=== PATIENT | male | born 1930 | race Caucasian/White ===

== ENCOUNTER 2017-12-29 08:33 | Observation (INO) | payer MEDICARE ==
[~2017-12-29] VITALS: Ht 182.9 cm; Wt 89.8 kg
[~2017-12-29 08:33] MED LIST: BENZONATATE PO; CHERATUSSIN AC118 ML PO; DIAZEPAM5 MG PO; DIGITEK125 MC1; HUMALOG100 UNIT/1 SQ; LEVAQUIN500 MG PO; LEVEMIR100 UNIT/1 SQ; LOSARTAN POTAS100 MG PO; MEDROL4 MG/DOSE-; MONTELUKAST SOD10 MG PO; NIFEDICAL XL30 MG PO; OMEPRAZOLE20 M1 PO; PROVENTIL HFA6.7 GM IH; SPIRIVA18 MCG INH; TEMAZEPAM15 MG PO; Z LEVOTHROID PO; Z.0.AMLODIPINE BESY1 PO; Z.0.COUMADIN4 MG PO; Z.0.CRESTOR20 MG PO; Z.0.DIOVAN160 MG PO; Z.0.GABAPENTIN300 MG PO; Z.0.GLYBURIDE5 MG PO; Z.0.LEVOFLOXACIN500 PO; Z.0.LOPRESSOR50 MG PO; Z.1.HYDROCHLOROTH12. PO
--- OUTSIDE RECORDS SUMMARY | 2017-12-29 08:35 | XMS REPORT ---
Author Author [facility] Address Unknown Phone Unavailable Care Team Providers Care Risk Control Representative Name Role Phone KAREN HANDLEY Unavailable Unavailable Problems This patient has no known problems. Allergies, Adverse Reactions, Alerts This patient has no known allergies or adverse reactions. Medications This patient has no known medications. Results Test Description Test Time Test Comments Text Results Atomic Results Result Comments CT CHEST [address] [place] [address] Patient Name: LINK HURD MR #: [id number] : 1930 Age/Sex: 87/M Req #: [id number] Adm Physician: Ordered by: KAREN HANDLEY MD Report #: [id number] Location: [facility] Room/Bed: Procedure: [id number] 0004 CT/CT CHEST W Exam Date: 08/26/17 Exam Time: 1145 REPORT STATUS: Signed EXAM: CT Chest WITH contrast INDICATION: Mass COMPARISON: 03/16/2017 CT abdomen TECHNIQUE: The Chest was scanned utilizing a multidetector helical scanner after administration of IV contrast. Coronal and sagittal reformations were obtained. IV CONTRAST: 100 mL Isovue-370 COMPLICATIONS: None RADIATION DOSE: Total DLP: 489 mGy*cm Estimated effective dose: (DLP x 0.015 x size factor) mSv CTDIvol has been reviewed. It is below the limits set by the Radiation Protocol Committee (RPC). FINDINGS: Lines and Tubes: None. Lower Neck: Unremarkable. Heart and Great Vessels: The aorta and main pulmonary artery measure 39 and 30 mm. respectively. The cardiothoracic radio measures 12/26. Right pulmonary trunk measures 29 mm and left pulmonary trunk measures 26 mm. Moderate aortic and coronary artery vascular calcifications are present. While exam is not tailored for pulmonary artery evaluation, no central pulmonary embolus is identified. Left atrium is prominent measuring 47 mm in diameter. Lymph Nodes: Scattered small subcentimeter mesenteric lymph nodes present. 16 mm right hilar lymph node present. Lungs: There is mild biapical scarring. No pneumothorax or pleural effusion is present. Mucus is present in the right lower lobe bronchus. There is partial collapse/ atelectasis in the right middle lobe. Previously described nodule in the medial aspect of the left lower lobe has decreased in size now measuring 12 x 9 mm. There is a granuloma in the right lower lobe axial image 72. 11 mm groundglass nodule right upper lobe axial image 24 present. Calcified granulomata at the right apex present. Upper abdomen: Post surgical changes left hepatic lobe partially visualized. Bones and Soft Tissues: Sternotomy wires and moderate degenerative changes spine. IMPRESSION: 1. Nodular density medial aspect left lower lobe significantly improved now measuring 12 x 9 mm. Clinical history is unknown at time of dictation. If patient has a known history of malignancy, this would represent response to therapy. If findings were presumed infectious, findings would represent improving infectious process. Correlation recommended. 2. 11 mm groundglass nodule right upper lobe. If there is no history of known malignancy, CT follow-up 6-12 months recommended with documentation of 5 year stability recommended. If there is a history of known malignancy, shorter interval follow-up would be recommended. 3. 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 4. Prominent pulmonary arteries suggesting pulmonary hypertension. 5. Dilated left atrium. 6. Prominent right hilar lymph node, nonspecific. Signed by: Dr. Brett Johnson MD on 08/26/2017 1:46 PM Dictated By: BRETT JOHNSON MD [id number] Transcribed By: BRITNEY on 08/26/17 1346 COPY TO: KAREN HANDLEY MD
[2017-12-29] MEDS ORDERED: CLONIDINE HCL 0.2 MG TAB PO ONE (09:00)
[2017-12-29] MEDS ORDERED: NITROGLYCERIN 2% OINT 1 GM PKT TOP STA (09:03)
[2017-12-29 09:49] LABS: BASOPHILS # (AUTO) 0.1 (0.0-0.1); BASOPHILS % 0.7 % (0.0-1.0); EOSINOPHILS # (AUTO) 0.3 (0.0-0.4); EOSINOPHILS % 3.6 % (0.0-6.0); HEMATOCRIT 39.6 % (38.2-49.6); HEMOGLOBIN 12.7 g/dL (14.0-18.0); LYMPHOCYTES # (AUTO) 1.4 (1.0-3.2); LYMPHOCYTES % 16.8 % (18.0-39.1); MEAN CORPUSCULAR HEMOGLOBIN 29.1 pg (28-32); MEAN CORPUSCULAR HGB CONC 32.1 g/dL (31-35); MEAN CORPUSCULAR VOLUME 90.8 fL (81-99); MONOCYTES # (AUTO) 0.9 (0.2-0.8); MONOCYTES % 10.6 % (4.4-11.3); NEUTROPHILS # (AUTO) 5.5 (2.1-6.9); NEUTROPHILS % 67.9 % (38.7-80.0); PLATELET COUNT 213 x10e3/uL (140-360); RED BLOOD COUNT 4.36 x10e6/uL (4.3-5.7); RED CELL DISTRIBUTION WIDTH 13.6 % (11.7-14.4)
[2017-12-29 10:04] LABS: INR 1.8; PROTHROMBIN TIME 19.6 seconds (11.9-14.5)
[2017-12-29 10:05] LABS: PARTIAL THROMBOPLASTIN TIME 30.6 seconds (23.8-35.5)
[2017-12-29 10:12] LABS: ALANINE AMINOTRANSFERASE 22 IU/L (0-55); ALBUMIN 3.9 g/dL (3.5-5.0); ALKALINE PHOSPHATASE 78 IU/L (40-150); ANION GAP 13.7 mmol/L (8-16); BLOOD UREA NITROGEN 13 mg/dL (7-26); BUN/CREATININE RATIO 13 (6-25); CALCIUM 9.6 mg/dL (8.4-10.2); CARBON DIOXIDE 25 mmol/L (22-29); CHLORIDE 103 mmol/L (98-107); CREATINE KINASE 108 IU/L (30-200); CREATININE, SERUM 1.02 mg/dL (0.72-1.25); EST GLOMERULAR FILTRATION RATE > 60 ML/MIN (60-); GLUCOSE 176 mg/dL (74-118); POTASSIUM 3.7 mmol/L (3.5-5.1); SODIUM 138 mmol/L (136-145)
--- NOTE | 2017-12-29 10:13 | Diagnostic Imaging Report ---
PROCEDURE: CHEST SINGLE (PORTABLE) COMPARISON: Patients [facility], DX, CHEST 2 VIEWS, 03/19/2017, 5:30. INDICATIONS: HEADACHE, SHORTNESS OF BREATH FINDINGS: LUNGS: No consolidations or edema. Right upper lobe calcified granulomas. PLEURA: No effusions or pneumothorax. HEART \T\ MEDIASTINUM: The heart is within normal size-limits. There are sternotomy wire sutures. BONES \T\ SOFT TISSUES: Multiple old rib fractures and left clavicular fracture. CONCLUSION: No acute thoracic abnormality. Ajay Grant D.O. Dictated by: Ajay Grant D.O. on 12/29/2017 at 10:12 Electronically approved by: Ajay Grant D.O. on 12/29/2017 at 10:12
[2017-12-29] MEDS ORDERED: SODIUM CHLORIDE FLUSH 10 ML SYR INJ PRN (12:30)
[2017-12-29] MEDS ORDERED: ACETAMINOPHEN 325 MG TAB PO ONE (13:15)
[2017-12-29] MEDS ORDERED: CLONIDINE HCL 0.1 MG TAB PO ONE (13:15)
[2017-12-29 16:30] VITALS: BP 113/59
[2017-12-29 16:50] VITALS: BP 113/59
[2017-12-29] MEDS ORDERED: HYDRALAZINE HCL 20 MG/ML VIAL IV PRN (19:30)
[2017-12-29] MEDS: ACETAMINOPHEN 325 MG TAB PO PRN (19:35)
[2017-12-29 20:00] VITALS: BP 19/64
[2017-12-29 22:27] VITALS: BP 19/64
[2017-12-30] VITALS (7 sets, daily range): BP systolic 102–143; BP diastolic 41–65
[2017-12-30] MEDS: DIAZEPAM 5 MG TAB PO SCH ×4 (06:45→21:17)
[2017-12-30] MEDS ORDERED: DIAZEPAM 5 MG TAB PO PRN (06:45)
--- NOTE | 2017-12-30 07:19 | History and Physical ---
PRIMARY CARE PHYSICIAN: Patient does not recall. CHIEF COMPLAINT: Increased anxiety, headache and shortness of breath. HISTORY OF PRESENT ILLNESS: An 87-year-old man with a history of hypertension, now developing severe anxiety with shortness of breath, headache, and therefore came to the hospital. Blood pressure was as high as 230/110. He was given nitroglycerin and clonidine, and placed on a nitroglycerin patch. Patient's anxiety finally resolved, and now all his symptoms have resolved. Denies any chest pain. Denies any fever or chills. PAST MEDICAL HISTORY: Anxiety disorder, atrial fibrillation, hypertension, hypothyroidism, diabetes mellitus, type 2, GERD. PAST SURGICAL HISTORY: None. ALLERGIES: PER ELECTRONIC MEDICAL RECORD. FAMILY HISTORY/SOCIAL HISTORY: Patient is . He has 3 children. Occasional alcohol. No cigarettes or illicits. MEDICATIONS: Per electronic medical record. REVIEW OF SYSTEMS: Denies any dizziness or chest pain at this time. PHYSICAL EXAMINATION VITAL SIGNS: Have been reviewed. His blood pressure is as high as 230/110. GENERAL: A tired-appearing man resting in bed. HEENT: Anicteric. Pupils respond to light. No oral lesions. CARDIOVASCULAR: Normal S1 and S2. LUNGS: He has moderate breath sounds. ABDOMEN: Soft, nontender and nondistended. EXTREMITIES: No edema or calf tenderness. NEUROLOGICAL: He is alert and oriented times 3. Moves all extremities. SKIN: Dry. PSYCHIATRIC: Flat affect. LABS: Reviewed. MEDICATIONS: Reviewed. ASSESSMENT AND PLAN: An 87-year-old man with: 1. Panic attack: His symptoms completely resolved after about an hour. Will treat him with benzodiazepine and Valium and titrate down. 2. Hypertensive emergency with headache and shortness of breath: He was given clonidine and nitroglycerin. We will remove the nitro patch now, and start him on oral medications for blood pressure control. 3. Atrial fibrillation: He does take Coumadin at home and digoxin. Will check his digoxin level and restart his Coumadin. His INR is 1.8. 4. Diabetes mellitus, type 2: Obtain hemoglobin A1c and lipid panel. 5. Hypothyroidism: Will continue Synthroid and check his TSH. 6. Gastroesophageal reflux disease: Protonix. 7. Prophylaxis: Will use proton pump inhibitor and sequential compression devices. 8. Disposition: Monitor closely. Control blood pressure. Remove nitro patch now and start him on oral medications. Continue Valium. Titrate off over the next day. Job#: [id number]
[2017-12-30 08:25] LABS: CHOL/HDL RATIO 6.9 (3.9-4.7)
[2017-12-30] MEDS ORDERED: TIOTROPIUM 18 MCG INH POWDER INH SCH (09:00)
[2017-12-30] MEDS ORDERED: PANTOPRAZOLE SOD 40 MG TABEC PO SCH (09:00)
[2017-12-30] MEDS ORDERED: MONTELUKAST SODIUM 10 MG TAB PO SCH (09:00)
[2017-12-30] MEDS ORDERED: NIFEDIPINE CR 30 MG TAB PO SCH (09:00)
[2017-12-30] MEDS ORDERED: INSULIN DETEMIR 100 UNIT/ML PEN SQ SCH ×2 (09:00→17:00)
[2017-12-30] MEDS: LEVOTHYROXINE SODIUM 125 MCG TAB PO SCH (09:15)
[2017-12-30] MEDS: LOSARTAN POTASSIUM 100 MG TAB PO SCH ×2 (09:15→17:42)
[2017-12-30] MEDS: METOPROLOL TARTRATE 50 MG TAB PO SCH ×2 (09:17→17:42)
[2017-12-30] MEDS: NIFEDIPINE CR 30 MG TAB PO SCH ×2 (09:18→21:17)
[2017-12-30] MEDS ORDERED: TEMAZEPAM 15 MG CAP PO SCH (21:00)
[2017-12-31] VITALS: BP 133/79
[2017-12-31] MEDS: ACETAMINOPHEN 325 MG TAB PO PRN (03:55)
[2017-12-31 04:00] VITALS: BP 134/66
[2017-12-31] MEDS: LEVOTHYROXINE SODIUM 125 MCG TAB PO SCH (05:25)
[2017-12-31] MEDS: DIAZEPAM 5 MG TAB PO SCH (05:25)
[2017-12-31 07:30] VITALS: BP 134/66
[2017-12-31 07:58] VITALS: BP 147/68
== END 2017-12-31 09:07 | disposition left against medical advice (07) ==
LOC: ER 08:33 → IMCU 15:46
PROVIDERS: ADMIT Internal Medicine; ATTEND Internal Medicine
DX: I16.1 Hypertensive emergency (principal); F41.0 Panic disorder [episodic paroxysmal anxiety]; I10 Essential (primary) hypertension; I48.91 Unspecified atrial fibrillation; Z79.01 Long term (current) use of anticoagulants; E11.9 Type 2 diabetes mellitus without complications; E03.9 Hypothyroidism, unspecified; K21.9 Gastro-esophageal reflux disease without esophagitis
CPT/HCPCS: 36415 ×3; 71045; 80053; 80061; 80162; 82550; 82553; 82948 ×2; 84443; 84484; 85025; 85610; 85730; 93005; 99284; G0378 ×3

== ENCOUNTER 2020-06-19 10:14 | Observation (INO) | payer MEDICARE, OTHER ==
[~2020-06-19] VITALS: Ht 185.4 cm; Wt 89.8 kg
[2020-06-19 10:38] LABS: BASOPHILS # (AUTO) 0.1 (0.0-0.1); BASOPHILS % 0.7 % (0.0-1.0); EOSINOPHILS # (AUTO) 0.1 (0.0-0.4); EOSINOPHILS % 0.4 % (0.0-6.0); HEMATOCRIT 37.7 % (38.2-49.6); HEMOGLOBIN 11.3 g/dL (14.0-18.0); LYMPHOCYTES # (AUTO) 1.5 (1.0-3.2); LYMPHOCYTES % 10.7 % (18.0-39.1); MEAN CORPUSCULAR HEMOGLOBIN 25.7 pg (28-32); MEAN CORPUSCULAR VOLUME 85.7 fL (81-99); MONOCYTES # (AUTO) 1.1 (0.2-0.8); MONOCYTES % 8.3 % (4.4-11.3); NEUTROPHILS # (AUTO) 10.9 (2.1-6.9); NEUTROPHILS % 79.4 % (38.7-80.0); PLATELET COUNT 490 x10e3/uL (140-360); RED CELL DISTRIBUTION WIDTH 14.6 % (11.7-14.4)
--- OUTSIDE RECORDS SUMMARY | 2020-06-19 10:40 | XMS REPORT | Continuity of Care Document ---
Author Author [facility] Organization [facility] Address [address] [place] [address] Phone Unavailable Care Team Providers Care Sole Tacker Name Role Phone Cyrus THOMASON Attphys Unavailable Abraham HANDLEY Attphys Unavailable Payers Payer Name Policy Type Policy Number Effective Date Expiration Date S ource Problems This patient has no known problems. Allergies, Adverse Reactions, Alerts Allergy Name Allergy Type Status Severity Reaction(s) Onset Date Inacti ve Date Treating Clinician Comments Source metoclopramide HCl DA Active U 2018-03-02 00:00:00 [facility] Penicillins DA Active U 2018-03-02 00:00:00 [facility] Sulfa (Sulfonamide Antibiotics) DA Active U 2018-03-02 00 :00:00 [facility] codeine DA Active U 2018-03-02 00:00:00 [facility] Medications This patient has no known medications. Procedures This patient has no known procedures. Results Test Description Test Time Test Comments Results Result Comments Source URINALYSIS COMPLETE 2020-05-31 22:57:00 Test Item UA COLOR (test code = COLU) COLORLESS YELLOW A UA APPEARANCE (test code = APPU) CLEAR CLEAR UA GLUCOSE DIPSTICK (test code = DGLUU) NEGATIVE mg/dL NEGATIVE UA BILIRUBIN DIPSTICK (test code = BILU) NEGATIVE mg/dL NEGATIVE UA KETONE DIPSTICK (test code = KETU) NEGATIVE mg/dL NEGATIVE UA SPECIFIC GRAVITY (test code = SGU) 1.012 1.001-1.035 UA BLOOD DIPSTICK (test code = JOELLE) Negative mg/dL NEGATIVE UA PH DIPSTICK (test code = JENNIFER) 7.0 5.0-8.0 UA PROTEIN DIPSTICK (test code = PROU) NEGATIVE mg/dL NEGATIVE UA UROBILINIOGEN DIPSTICK (test code = URO) Normal mg/dL NEGATIVE UA NITRITE DIPSTICK (test code = LEONELA) NEGATIVE NEGATIVE UA LEUKOCYTE ESTERASE W REFLEX (test code = LEUUR) NEGATIVE Garo/uL NEGATIVE UA WBC (test code = WBCU) 0-5 per HPF 0-5 UA RBC (test code = RBCU) 0-3 #/HPF 0-5 UA EPITHELIAL CELLS (test code = EPIU) Rare (0-1/hpf) per HPF FEW UA BACTERIA (test code = BACU) NONE SEEN #/HPF NONE UA HYALINE CAST (test code = HYALU) 0-2 #/LPF 0-5 Urine Source? Clean CatchURINALYSIS [id number] 22:52:00* Test Item Value Reference Range Interpretation Comments UA COLOR (test code = COLU) YELLOW UA APPEARANCE (test code = APPU) CLEAR CLEAR UA GLUCOSE DIPSTICK (test code = DGLUU) NEGATIVE mg/dL NEGATIVE UA BILIRUBIN DIPSTICK (test code = BILU) NEGATIVE mg/dL NEGATIVE UA KETONE DIPSTICK (test code = KETU) NEGATIVE mg/dL NEGATIVE UA SPECIFIC GRAVITY (test code = SGU) 1.012 1.001-1.035 UA BLOOD DIPSTICK (test code = JOELLE) Negative mg/dL NEGATIVE UA PH DIPSTICK (test code = JENNIFER) 7.0 5.0-8.0 UA PROTEIN DIPSTICK (test code = PROU) NEGATIVE mg/dL NEGATIVE UA UROBILINIOGEN DIPSTICK (test code = URO) Normal mg/dL NEGATIVE UA NITRITE DIPSTICK (test code = LEONELA) NEGATIVE NEGATIVE UA LEUKOCYTE ESTERASE W REFLEX (test code = LEUUR) NEGATIVE Garo/uL NEGATIVE UA WBC (test code = WBCU) per HPF 0-5 UA RBC (test code = RBCU) per HPF 0-5 UA EPITHELIAL CELLS (test code = EPIU) per HPF Few UA BACTERIA (test code = BACU) per HPF NONE Urine Source? Clean Catch- XR CHEST 1 [id number] 21:53:00 FAX: Carlos Deng MD [phone] [place]: St: REG FAX: Y Sudhir Reardon DO [phone] Name: LINK HURD [facility] : 1930 Age/S: 89/M [address] [facility] Unit #: [id number] Loc: [place] [address] Phys: Carlos Deng MD Acct: [id number] Dis Date: Status: REG ER PHONE #: [phone] Exam Date: 05/31/20202119 FAX #: [phone] Reason: SHORTNESS OF BREATH EXAMS: CPT CODE: [id number] XR CHEST 1 V 33008 HISTORY: SHORTNESS OF BREATH TECHNIQUE: AP chest x-ray COMPARISON: 06/29/19 FINDINGS: No airspace consolidation or pleural effusion. Mid left lung field platelike atelectasis. Right apical calcified granulomas. Mild cardiomegaly. Thoraci c aortic vascular calcification. Sternotomy wires. Degenerative changes of the spine and shoulders. IMPRESSION: No acute findings or significant interval change. LOCATION: at 2153 Reported and signed by: Jessica almeida D.O. CC: Carlos Deng MD; Sudhir Reardon DO Technologist: SHON POWERS RT(R) Trnscrd Date/Time/By: 05/31/2020 (2152) : By: [email or web address] Orig Print D/T: S: 0 05/31/2020 (2155) PAGE 1 Signed Re port B-TYPE NATRIURETIC [id number] 21:09:00 * Test Item Value Reference Range Interpretation Comments B-TYPE NATRIURETIC PEPTIDE (test code = BNP) 549.37 pgram/mL 0-100 H Coronavirus 2019 nCoV [id number] 20:51:00* Test Item Value Reference Range Interpretation Comments Coronavirus 2019 nCoV Bedside (test code = [id number]) Negative Is patient requiring admission or transfer? YIndication for rapid COVID-19 testi ng: Mod Clinical SuspicionBASIC METABOLIC [id number] 20:40:00* Test Item Value Reference Range Interpretation Comments SODIUM (test code = NA) 140 mmol/L 136-145 N POTASSIUM (test code = K) 4.1 mmol/L 3.5-5.1 N CHLORIDE (test code = CL) 106.0 mmol/L 98-107 N CARBON DIOXIDE (test code = CO2) 27.0 mmol/L 21-32 N ANION GAP (test code = GAP) 11.1 10-20 N GLUCOSE (test code = GLU) 144 mg/dL 74-106 H BLOOD UREA NITROGEN (test code = BUN) 19 mg/dL 7-18 H GLOMERULAR FILTRATION RATE (test code = GFR) > 60 mL/min >=60 Estimated GFR by using Modified MDRD formula.Chronic kidney disease is defined as either kidney damageor GFR <60 mL/min/1.73 m2 for >3 months. CREATININE (test code = CREAT) 0.90 mg/dL 0.7-1.3 N BUN/CREATININE RATIO (test code = BUN/CREA) 21.5 10-20 H CALCIUM (test code = CA) 9.2 mg/dL 8.5-10.1 N HEPATIC FUNCTION [id number] 20:40:00* Test Item Value Reference Range Interpretation Comments TOTAL PROTEIN (test code = PROT) 7.5 gram/dL 6.4-8.2 N ALBUMIN (test code = ALB) 3.3 g/dL 3.4-5.0 L GLOBULIN (test code = GLOB) 4.2 gram/dL 2.7-4.2 N ALBUMIN/GLOBULIN RATIO (test code = A/G) 0.8 0.75-1.50 N BILIRUBIN TOTAL (test code = BILT) 0.20 mg/dL 0.0-1.0 N BILIRUBIN DIRECT (test code = BILD) 0.11 mg/dL 0.0-0.20 N SGOT/AST (test code = AST) 20 IUnit/L 15-37 N SGPT/ALT (test code = ALT) 25 IUnit/L 12-78 N ALKALINE PHOSPHATASE TOTAL (test code = ALKP) 88 IUnit/L 45-117 N Note change in reference range due to change in reagent. LACTIC DEHYDROGENASE(LDH)2020-05-31 20:40:00* Test Item Value Reference Range Interpretation Comments LACTIC DEHYDROGENASE(LDH) (test code = LDH) 197 IUnit/L 84-246 N [id number] 20:40:00* Test Item Value Reference Range Interpretation Comments LIPASE (test code = LIP) 155 U/L 73.0-393.0 N [id number] 20:40:00* Test Item Value Reference Range Interpretation Comments TROPONIN-I (test code = TROPI) <0.015 ng/mL 0-0.045 N [id number] 20:40:00* Test Item Value Reference Range Interpretation Comments FERRITIN (test code = ALIZA) 83 ng/mL 8-388 N C REACTIVE [id number] 20:40:00* Test Item Value Reference Range Interpretation Comments C REACTIVE PROTEIN (test code = CRP) 0.87 mg/dL 0-0.3 H LACTIC [id number] 20:40:00* Test Item Value Reference Range Interpretation Comments LACTIC ACID (test code = LACT) 1.1 mmol/L 0.4-1.9 N CBC W/AUTO [id number] 20:17:00* Test Item Value Reference Range Interpretation Comments WHITE BLOOD CELL (test code = WBC) 9.4 K/mm3 4.5-12.5 N RED BLOOD CELL (test code = RBC) 3.93 mill/mm3 4.0-5.8 L HEMOGLOBIN (test code = HGB) 10.9 gram/dL 13.0-17.5 L HEMATOCRIT (test code = HCT) 35.5 % 42.0-52.0 L MEAN CELL VOLUME (test code = MCV) 90.3 fL 80-98 N MEAN CELL HGB (test code = MCH) 27.7 picogram 27.0-33.0 N MEAN CELL HGB CONCETRATION (test code = MCHC) 30.7 gram/dL 33.0-36. 0 L RED CELL DISTRIBUTION WIDTH (test code = RDW) 14.6 % 11.6-16. 2 N RED CELL DISTRIBUTION WIDTH SD (test code = RDW-SD) 48.4 fL 37 .0-51.0 N PLATELET COUNT (test code = PLT) 335 K/mm3 150-450 N MEAN PLATELET VOLUME (test code = MPV) 9.2 fL 6.7-11.0 N NEUTROPHIL % (test code = NT%) 67.0 % 39.0-69.0 N IMMATURE GRANULOCYTE % (test code = IG%) 0.4 % 0.0-5.0 N LYMPHOCYTE % (test code = LY%) 17.9 % 25.0-55.0 L MONOCYTE % (test code = MO%) 8.1 % 0.0-10.0 N EOSINOPHIL % (test code = EO%) 5.3 % 0.0-5.0 H BASOPHIL % (test code = BA%) 1.3 % 0.0-1.0 H NUCLEATED RBC % (test code = NRBC%) 0.0 % 0-0 N NEUTROPHIL # (test code = NT#) 6.29 K/mm3 1.8-7.7 N IMMATURE GRANULOCYTE # (test code = IG#) 0.04 x10 3/uL 0-0.03 H LYMPHOCYTE # (test code = LY#) 1.68 K/mm3 1.0-5.0 N MONOCYTE # (test code = MO#) 0.76 K/mm3 0-0.8 N EOSINOPHIL # (test code = EO#) 0.50 K/mm3 0.0-0.5 N BASOPHIL # (test code = BA#) 0.12 K/mm3 0.0-0.2 N NUCLEATED RBC # (test code = NRBC#) 0.00 K/mm3 0.0-0.1 N - CT CHEST W/O [id number] 11:59:00 Name: VANNESSALINK [facility] : 1930 Age/S: 89 / M [address] [facility] Unit #: [id number] Loc: [place] [address] Phys: Cristian Felder MD Acct: [id number] Dis Date: Status: REG CLI PHONE #: [phone] Exam Date: 02/20/2020 1120 FAX #: [phone] Reason: R91.8ABNORMAL FINDINGS IN IMAGES OF LUNG FIELD EXAMS: CPT CODE: [id number] CT CHEST W/O CONTRAST 86648 HISTORY: R91.8. COMPARISON: July 04, 2019. Location: [facility]. CT chest without contrast: Automated exposure control Lungs are clear of infiltrates, effusion or congestion. Dependent changes. Calcified gran uloma in the left supradiaphragmatic base. Platelike atelectasis in the li ngula. No bronchiectasis, honeycombing or fibrosis or endobronchial lesion s. 9 mm groundglass nodule in the subpleural right upper lobe is unchanged and stable. No new nodules. Atherosclerotic normal caliber unopac ified aorta. Pulmonary arteries are mildly ectatic specially the main pulm onary artery trunk which could suggest pulmonary arterial hypertension. Un remarkable thyroid glands. Esophageal wall is mildly thickened likely from underdistention. No pathologic adenopathy. Cardiomegaly without per icardial effusion. Heavy calcification of the aortic valves. Visua lized upper abdomen are unremarkable with coarse capsular calcifications a long the along the anterior capsule of the liver which is unchanged from p revious exam. Subcutaneous tissues and the musculature are normal in appea amadeo. Multiple old posterior medial upper left rib fractures. Compression fracture deformity of T6 vertebral body is new from previous exam. Mild l oss of height of L1 vertebral body as well. IMPRESSION: Stable groundglass 9 mm nodule in the subpleural right upper lob e. Follow-up in 6 months. No new nodules. No bronchiectasis, honeycombin g or fibrosis. No pathologic adenopathy. New compressi on fracture rather loss of height of 10-15% of the T6 vertebral body. Mi ld loss of height of superior endplate of L1 vertebral body as well. at 1159 Reported and signed by: Pedrito Lagos M.D. PAGE 1 Signed Report (CONTINUED) Name: Marcy HURD [facility] : 1930 Age/ S: 89 / M [address] Unit #: [id number] Loc: [place] [address] Phys: Cristian Felder MD Acct: [id number] Dis Date: Status: REG CLI PHONE #: [phone] Exam Date: 02/20/2020 1120 FAX #: [phone] Reason: R91.8ABNORMAL FINDINGS IN IMAGES OF LUNG FIELD EXAMS: CPT CODE: [id number] CT CHEST W/O CONTRAST 31458 <Continued> CC: Cristian Felder MD; Sudhir Reardon DO Technologist:Trae Cristobal RT(R),(MR),(CT) CTDI: DLP: Trnscb Date/Time: 02/20/2020 (5854) t.SDR.TH4 Orig Print D/T: S: 02/20/2020 (5311) PAGE 2 Signed Report - US ABDOMEN [id number] 10:04:00 Name: LINK HURD [facility] : 1930 Age/S: 89 / M [address] Unit #: [id number] Loc: [place] [address] Phys: Sudhir Reardon DO Acct: [id number] Dis Date: Status: REG CLI PHONE #: [phone] Exam Date: 01/25/2020 0940 FAX #: [phone] Reason: R10.84 EXAMS: CPT CODE: [id number] US ABDOMEN COMPLETE 24628 REASON FOR EXAM: R10.84 EXAM ORDER DATE: 01/25/2020 8:53 AM Attending Brittny: Sudhir Reardon DO PROCEDURE: - US ABDOMEN COMPLETE Technique: Grayscale and color Doppler images of the abdomen. Comparison study: None FINDINGS: Aorta and IVC: Patent and grossly normal in caliber. Liver: Size: 20.1 cm cranioc audally. There is been prior partial hepatectomy with removal of the left hepatic lobe Parenchyma and contour: Smooth contour. Normal echogenicity. Cysts and/or masses: None. Intrahepatic bile ducts: No intr ahepatic biliary ductal dilation Common bile duct: 2.[address] No echogenic filling defects in visualized duct. Gallb ladder: Stones/sludge: No intraluminal stones or sludge. Wall: 1.2 mm in thickness. No discontinuity. No polyps. No pericholecystic fluid. No hyperemia. Sonographic Ch's sign: Negative Portal v ein: Portal vein caliber is within normal limits. Portal vein is patent w ith hepatopetal flow. Pancreas: Incompletely visualized. However t he visualized portions are grossly within normal limits. Rig ht kidney: parenchyma echogenicity: Normal echogenicity size: 10.4 x 4.9 x 4.3 cm stones: none cysts/masses: none hydronephrosis: none PAGE 1 Signed Report (JAYSON NUPINA) Name: LINK HURD [facility] : 1930 Age[facility]S: 89 / M [address] [facility] #: [id number] Loc: [place] [address] Phys: Sudhir Aragon DO Acct: [id number] Dis Date: Status: REG CLI PHON E #: [phone] Exam Date: 01/25/2020939 FAX #: Reason: R10.84 EXAMS : CPT CODE: [id number] US ABDO MEN COMPLETE 08654 <Continued> Left kidney: parenchyma echogenicity: Normal echogenicity size: 10.6 x 5.4 x 5.8 cm stones: Punctate calcification in the lower pole measuring 3 mm in size with posterior shadowing may represent a stone versus vascular calcification cysts/masses: Simple 2.4 cm cortical cyst is present in the superior pole. hydronephrosis: none Spleen: size: 8.3 x 3.6 x 4.4 cm cysts/masses: Parenchyma is sonographically unremarkable. Ascites/pleural effusions: None IMPRESSION: Postsurgical changes of left partial hepatectomy. Simple cyst in the left kidney does not warrant further evaluation since it is most likely benign. Vascular calcificati ons versus nonobstructing stone in the inferior pole of the left kidney. Location: [facility] at 1004 Reported and signed by: Reinaldo Kothari MD CC: Sudhir Reardon DO Technologist: HOLLY BENEDICT RT(R),BLAS Trnscb Da te/Time: 01/25/2020 (1004) Angie.RR31 Orig Print D/T: S: 0 01/25/2020 (1013) Probe: PAGE 2 Signed Report - CT CHEST W/O [id number] 15:30:00 Name: LINK HURD [facility] : 1930 Age/S: 89 / M [address] [facility] #: [id number] Loc: [place] [address] Phys: Sudhir Reardon DO Acct: [id number] Dis Date: Status: REG CLI PHONE #: [phone] Exam Date: 07/04/2019 1514 FAX #: [phone] Reason: PNEUMONIA EXAMS: CPT CODE: [id number] CT CHEST W/O CONTRAST 12676 REASON FOR EXAM: PNEUMONIA EXAM ORDER DATE: 07/04/2019 3:02 PM Ordering M.D.: Sudhir Reardon DO PROCEDURE: - CT CHEST W/O CONTRAST Comparison:Frontal chest radiograph June 29, [address] images of the chest were obtained without the use of IV contrast. Reconstructed sagittal and coronal images of the chest were provided for interpretation. Dose reduction techniques were applied. FINDINGS: The absence of IV contrast limits the sensitivity of this exam for detecting soft tissue pathology and differentiating atelectasis from consolidations. Visualized neck: Grossly normal Airways, Lungs and Pleura: The central airways are patent. There is mild bronchial wall thickening. No pleural effusion or pneumothorax. The right middle lobe is atelectatic. No obstructing lesions are seen in the airways supplying the right middle lobe however. There is a small opacity in the right upper lobe containing groundglass and nodular components that measures up to 1 cm in size. Calcified granulomas present in the left lung base. No pleural abnormality. Heart, great vessels, pulmonary vessels, mediastinum: There is no cardiomegaly or pericardial effusion. 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 Normal caliber of the aorta and pulmonary trunk. Lymph nodes: Calcified left perihilar lymph node. Evaluation of the hilar lymph nodes is suboptimal due to absence of IV contrast. No mediastinal or axillary or internal mammary adenopathy. Musculoskeletal/chest wall: There are degenerative changes in the shoulders and throughout the spine. Po stsurgical changes of sternotomy. Posttraumatic changes are seen involving multiple ribs on the left side. There are a few post fracture deformities involving the PAGE 1 Signed Report (CONTINUED) Name: LINK HURD [facility] : 1930 Age/S: 89 / M [address] [facility] Unit #: [id number] Loc: [place] [address] Ph ys: Sudhir Reardon DO Acct: [id number] Dis Date: Status: REG CLI PHONE #: [phone] Exam Date: 07/04/2019 1514 FAX #: [phone] Reason: PNEUMONIA EXAMS: CPT CODE: [id number] CT CHEST W/O CONTRAST 79813 <Continued> right ribs as well. Visualized upper abdomen: Exophytic cortical cyst involving the left kidney. Mild fatty replacement involving the pancreas. Postsurgical changes of left lobe hepatectomy. IMPRESSION: 1. Mild bronchial wall thickening. This is nonspecific and can be seen with an infectious process, inflammation ( including tobacco exposure), or mild interstitial edema. 2. 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 No obstructing airway lesions or hilar mass is appreciated that would account for this atelectasis. Additional ly this may be a chronic finding. Comparison with prior studies from out side facilities is recommended. 3. Right upper lobe pulmonary nodule wit h groundglass and solid components measuring up to 1 cm in size. Compari son to prior studies at outside hospitals is recommended. If there are n o relevant exams or these nodules are not seen on the prior exams then F ollow-up CT scan in 3-6 months is recommended to assess for stability. T he lungs are otherwise clear. 4. Postsurgical changes of aortic valve replacement. Electronically Signed by Reinaldo Kothari MD on 2018 at 1530 Reported and signed by: Reinaldo Kothari MD CC: Sudhir Reardon DO Technologi st:RAUL CORBIN RT(R) CT CTDI: DLP: Trnscb Date/Time: (1530) CarolinR.RR31 Orig Print D/T: S: 07/04/2019 ( 1533) PAGE 2 Signed Report [id number] 18:02:00* Test Item Value Reference Range Interpretation Comments DIGOXIN (test code = DIG) 0.3 ng/mL 0.90-2.0 L NO TE: Spironolactone interference may cause a decrease inreported Digoxin results of 11-30 %. PROTHROMBIN [id number] 17:31:00* Test Item Value Reference Range Interpretation Comments PROTHROMBIN TIME PATIENT (test code = PTP) 30.8 seconds 9.0-14.0 H INTERNATIONAL NORMAL RATIO (test code = INR) 2.6 0.8-1.2 H The therapeutic range for oral anticoagulant therapy formost indications is an international normalized ratio (INR)of between 2.0 and 3.0. The recommended therapeutic INRrange for various clinical situations is listed below: Clinical Situation INR range Pulmonary e mbolism treatment (2.0-3.0)Venous thrombosis treatmentVenous thrombosis prophylaxis (high risk surgery)Prevention of systemic embolism from: Acute myocardial infarction Valvular heart disease Atrial fibrillation Mechanical prosthetic heart valves (2.5-3.5) IS PATIENT ON ANTICOAGULANTS? YLIST ANTICOAGULANTS COUMADINTHROMBOPLASTIN TIME [id number] 17:31:00* Test Item Value Reference Range Interpretation Comments THROMBOPLASTIN TIME PARTIAL (test code = PTT) 41.5 seconds 25.0-36. 5 H IS PATIENT ON ANTICOAGULANTS? YLIST ANTICOAGULANTS COUMADINB-TYPE NATRIURETIC [id number] 16:42:00* Test Item Value Reference Range Interpretation Comments B-TYPE NATRIURETIC PEPTIDE (test code = BNP) 189.98 pgram/mL 0-100 H BASIC METABOLIC [id number] 16:24:00* Test Item Value Reference Range Interpretation Comments SODIUM (test code = NA) 140 mmol/L 136-145 N POTASSIUM (test code = K) 3.6 mmol/L 3.5-5.1 N CHLORIDE (test code = CL) 104.0 mmol/L 98-107 N CARBON DIOXIDE (test code = CO2) 25.0 mmol/L 21-32 N ANION GAP (test code = GAP) 14.6 10-20 N GLUCOSE (test code = GLU) 150 mg/dL 74-106 H BLOOD UREA NITROGEN (test code = BUN) 16 mg/dL 7-18 N GLOMERULAR FILTRATION RATE (test code = GFR) > 60 mL/min >=60 Estimated GFR by using Modified MDRD formula.Chronic kidney disease is defined as either kidney damageor GFR <60 mL/min/1.73 m2 for >3 months. CREATININE (test code = CREAT) 1.00 mg/dL 0.7-1.3 N BUN/CREATININE RATIO (test code = BUN/CREA) 15.8 10-20 N CALCIUM (test code = CA) 8.9 mg/dL 8.5-10.1 N [id number] 16:24:00* Test Item Value Reference Range Interpretation Comments TROPONIN-I (test code = TROPI) <0.015 ng/mL 0-0.045 N CBC W/O [id number] 15:34:00* Test Item Value Reference Range Interpretation Comments WHITE BLOOD CELL (test code = WBC) 10.1 K/mm3 4.5-12.5 N RED BLOOD CELL (test code = RBC) 3.87 mill/mm3 4.0-5.8 L HEMOGLOBIN (test code = HGB) 11.5 gram/dL 13.0-17.5 L HEMATOCRIT (test code = HCT) 36.1 % 42.0-52.0 L MEAN CELL VOLUME (test code = MCV) 93.3 fL 80-98 N MEAN CELL HGB (test code = MCH) 29.7 picogram 27.0-33.0 N MEAN CELL HGB CONCETRATION (test code = MCHC) 31.9 gram/dL 33.0-36. 0 L RED CELL DISTRIBUTION WIDTH (test code = RDW) 14.8 % 11.6-16. 2 N PLATELET COUNT (test code = PLT) 166 K/mm3 150-450 N MEAN PLATELET VOLUME (test code = MPV) 9.3 fL 6.7-11.0 N - XR CHEST 1 [id number] 15:05:00 FAX: Sudhir Peralta DO [phone] [place]: St: REG FAX: Lizbet Song DO Name: LINK HURD [facility] : 1930 Age/S: 89/M [address] [facility] Unit #: [id number] Loc: [place] [address] Phys: Lizbet Song DO Acct: [id number] Dis Date: Status: REG ER PHONE #: [phone] Exam Date: 06/29/2019 1450 FAX #: [phone] Reason: CHEST PAIN EXAMS: CPT CODE: [id number] XR CHEST 1 V 31178 REASON FOR EXAM: CHEST PAIN EXAM ORDER DATE: 06/29/2019 2:31 PM Ordering MAlberto: Lizbet Song DO PROCEDURE: - XR CHEST 1 V COMPARISON: 05/26/2016 FINDINGS: Portable AP frontal view of the chest obtained at 2:42 PM shows stable appearance of the small calcified granulomas most numerous in the right apex. There is no evidence of effusion. The heart size is minimally enlarged. Pulmonary vasculatures are unremarkable. Multiple left-sided posterior rib fractures noted. IMPRESSION: No active disease. at 1503 Reported and signed by: Umair Sanchez M.D. CC: Sudhir Reardon DO; Lizbet Song DO Technologist: Maci Augustin) Trnmala Date/Time/By: 06/29/2019 (5504) : By: Ashley Orig Print D/T: S: 06/29/2019 (4308) PAGE 1 Signed Report CHEST SINGLE (PORTABLE) [place] [id number] Patient Name: LINK HURD MR #: [id number] : 1930 Age/Sex: 87/M Req #: [id number] Adm Physician: Ordered by: JONNA THOMASON MD Report #: [id number] Location: ER Room/Bed: Procedure: [id number] DX/CHEST SINGLE (PORTABLE) Exam Date: 12/29/17 Exam Time: 0855 REPORT STAT US: Signed PROCEDURE: CHEST SINGLE (PORTABLE) COMPARISON: [facility], DX, CHEST 2 VIEWS, 03/19/2017, 5:30. INDICATIONS: HEADACHE, SHORTNES S OF BREATH FINDINGS: LUNGS: No consolidations or edema. Right upp er lobe calcified granulomas. PLEURA: No effusions or pneumothorax. HEART T MEDIASTINUM: The heart is within normal size-limits. There are sternotomy wire sutures. BONES T SOFT TISSUES: Multiple old rib f ractures and left clavicular fracture. CONCLUSION: No acute thora cic abnormality. Ajay Tran D.O. Dictated by: Ajay almeida D.O. on 12/29/2017 at 10:12 Electronically approved by: Ajay sifuentes D.O. on 12/29/2017 at 10:12 Dictated By: AJAY MEYER lectronically Signed By: AJAY TRAN DO on 12/29/17 1012 Transcribed By: [facility] E on 12/29/17 1012 COPY TO: JONNA THOMASON MD CT CHEST [place] [address] Patient Name: LINK HURD MR #: [id number] : 1930 Age/Sex: 87/M Req #: [id number] Adm Physician: Ordered by: KAREN HANDLEY MD Report #: [id number] Location: [facility]/Bed: Procedure: [id number] CT/CT CHEST W Exam Date : 08/26/17 Exam Time: 1145 REPORT STATUS: Bettina d EXAM: CT Chest WITH contrast INDICATION: Mass COMPARISON: 03/16 CT abdomen TECHNIQUE: The Chest was scanned utilizing a multidetecto r helical scanner after administration of IV contrast. Coronal and sagittal re formations were obtained. IV CONTRAST: 100 mL [id number]-[id number] COMPLICATIONS: None RADIATION DOSE: Total DLP: 4 89 mGy*cm Estimated effective dose: (DLP x 0.015 x size factor) mSv CTDIvol has been reviewed. It is below the limits set by the [employer] [facility] Committee (RPC). FINDINGS: Lines and Tubes: None. Lower Nec k: Unremarkable. Heart and Great Vessels: The aorta and main pulmonary ethel ry measure 39 and 30 mm. respectively. The cardiothoracic radio measures 12/2 6. Right pulmonary trunk measures 29 mm and left pulmonary trunk measures 26 mm. Moderate aortic and coronary artery vascular calcifications are present. W hile exam is not tailored for pulmonary artery evaluation, no central pulmonar y embolus is identified. Left atrium is prominent measuring 47 mm in diameter. Lymph Nodes: Scattered small subcentimeter mesenteric lymph nodes present. 16 mm right hilar lymph node present. Lungs: There is mild biapical sc arring. No pneumothorax or pleural effusion is present. Mucus is present in th e right lower lobe bronchus. There is partial collapse/atelectasis in the righ t middle lobe. Previously described nodule in the medial aspect of the left lo wer lobe has decreased in size now measuring 12 x 9 mm. There is a granuloma i n the right lower lobe axial image 72. 11 mm groundglass nodule right upper lo be axial image 24 present. Calcified granulomata at [...] If there is no history of known m alignancy, CT follow-up 6-12 months recommended with documentation of 5 year s tability recommended. If there is a history of known malignancy, shorter inter presley follow-up would be recommended. 3. 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 4. Prominent pulmonary arteries suggesting pulmonary hypertension. 5. Di lated left atrium. 6. Prominent right hilar lymph node, nonspecific. Signed by: Dr. Elizabeth Linares MD on 08/26/2017 1:46 PM Dictated By: ELIZABETH LINARES MD [id number] Trans cribed By: BRITNEY on 08/26/17 1346 COPY TO: KAREN HANDLEY MD
[2020-06-19 11:11] LABS: ALANINE AMINOTRANSFERASE 41 IU/L (0-55); ALBUMIN 2.7 g/dL (3.5-5.0); ALBUMIN/GLOBULIN RATIO 0.6 (0.8-2.0); ALKALINE PHOSPHATASE 97 IU/L (40-150); ANION GAP 14.4 mmol/L (8-16); BLOOD UREA NITROGEN 18 mg/dL (7-26); BUN/CREATININE RATIO 18 (6-25); CALCIUM 9.8 mg/dL (8.4-10.2); CARBON DIOXIDE 26 mmol/L (22-29); CHLORIDE 99 mmol/L (98-107); CREATINE KINASE 16 IU/L (30-200); CREATININE, SERUM 0.98 mg/dL (0.72-1.25); EST GLOMERULAR FILTRATION RATE > 60 ML/MIN (60-); GLUCOSE 167 mg/dL (74-118); POTASSIUM 4.4 mmol/L (3.5-5.1); SODIUM 135 mmol/L (136-145)
--- NOTE | 2020-06-19 11:13 | Diagnostic Imaging Report ---
EXAM: CHEST SINGLE (PORTABLE) DATE: 06/19/2020 10:39 AM INDICATION: Weakness COMPARISON: None FINDINGS: There are postsurgical changes from prior median sternotomy. A suspected subcentimeter calcified granulomas noted within the right upper lobe. Linear opacity noted within the left and lung zones suggestive of subsegmental atelectasis. There is no evidence for large focal consolidation, pneumothorax, or significant volume pleural effusion. The cardiomediastinal silhouette is within normal limits. Atherosclerotic indications are noted within the thoracic aorta. No acute osseous abnormality is identified. IMPRESSION: No acute cardiopulmonary process identified. Signed by: Dr. Donnell Snider MD on 06/19/2020 11:10 AM
[2020-06-19 11:52] LABS: CLARITY,URINE CLEAR (CLEAR); COLOR,URINE YELLOW (YELLOW)
[2020-06-19 11:53] LABS: BILIRUBIN,URINE NEGATIVE (NEGATIVE); KETONES,URINE NEGATIVE (NEGATIVE); LEUKOCYTE ESTERASE ,URINE NEGATIVE (NEGATIVE); NITRITE,URINE NEGATIVE (NEGATIVE); PROTEIN,URINE DIPSTICK NEGATIVE (NEGATIVE); URINE UROBILINOGEN 4 mg/dL (0.2 - 1)
[2020-06-19 11:54] LABS: BACTERIA,URINE RARE /HPF; EPITHELIAL CELLS,URINE FEW /LPF; RBC,URINE 0-5 /HPF (0-5); WBC,URINE (MAN) 0-5 /HPF (0-5)
--- NOTE | 2020-06-19 12:34 | Emergency Department Note ---
History of Present Illnes History of Present Illness Chief Complaint: General Medicine Complaints History of Present Illness This is a 89 year old male . Chief Complaint Comment MONTHS OF RECENT WT LOSS, WEAKNESS, FATIGUE. PT BROUGHT BY SON. RN TO CAR TO HELP PT OUT OF POV AND IN WC AND STAT TRIAGE AND VS AND IV, LABS DONE. PT AAOX4. UNSTEADY ON FEET. PT AND SON VERY POOR HISTORIANS. PT GOES TO [facility]. PT SEE'S DR SEPULVEDA FOR HEART. LAST SEEN BY DR SEPULVEDA THIS WEEK. PT HX OF LIVER CANCER. HX OF COPD QUIT SMOKING 25 YRS AGO. Historian: Patient, Family Member Arrival Mode: Car Past Medical/Family History Physician Review I have reviewed the patient's past medical and family history. Any updates have been documented here. 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 Social History Smoking Cessation: Former smoker Counseling Performed: No Alcohol Use: None Any Illegal Drug Use: No Physically hurt or threatened: No Other Last Tetanus: UTD Any Pre-Existing Lines (PICC,: No Physical Exam Related Data Allergies: Coded Allergies: Penicillins (Verified Allergy, Unknown, 12/29/17) Sulfa (Sulfonamide Antibiotics) (Verified Allergy, Unknown, 12/29/17) Triage Vital Signs Vital Signs Date Time Temp Pulse Resp B/P (MAP) Pulse Ox O2 Delivery O2 Flow Rate FiO2 06/19/20 10:17 97.6 90 16 124/64 96 Room Air Physical Exam CONSTITUTIONAL HENT EYES NECK PULMONARY CARDIOVASCULAR GASTROINTESTINAL GENITOURINARY SKIN MUSCULOSKELETAL NEUROLOGICAL PSYCHOLOGICAL Results Laboratory Result Diagram: 06/19/20 1020 06/19/20 1020 Laboratory Laboratory Tests Test 06/19/20 11:41 06/19/20 10:20 Urine Color Yellow (YELLOW) Urine Clarity Clear (CLEAR) Urine pH 6.5 (5 - 7) Urine Specific [place] 1.020 (1.010-1.025) Urine Protein Negative (NEGATIVE) Urine Glucose (UA) Negative (NEGATIVE) Urine Ketones Negative (NEGATIVE) Urine Blood Negative (NEGATIVE) Urine Nitrite Negative (NEGATIVE) Urine Bilirubin Negative (NEGATIVE) Urine Urobilinogen 4 mg/dL (0.2 - 1) Urine Leukocyte Esterase Negative (NEGATIVE) Urine RBC 0-5 /HPF (0-5) Urine WBC 0-5 /HPF (0-5) Urine Epithelial Cells Few /LPF (NONE) Urine Bacteria Rare /HPF (NONE) White Blood Count 13.69 x10e3/uL (4.8-10.8) Red Blood Count 4.40 x10e6/uL (4.3-5.7) Hemoglobin 11.3 g/dL (14.0-18.0) Hematocrit 37.7 % (38.2-49.6) Mean Corpuscular Volume 85.7 fL (81-99) Mean Corpuscular Hemoglobin 25.7 pg (28-32) Mean Corpuscular Hemoglobin Concent 30.0 g/dL (31-35) Red Cell Distribution Width 14.6 % (11.7-14.4) Platelet Count 490 x10e3/uL (140-360) Neutrophils (%) (Auto) 79.4 % (38.7-80.0) Lymphocytes (%) (Auto) 10.7 % (18.0-39.1) Monocytes (%) (Auto) 8.3 % (4.4-11.3) Eosinophils (%) (Auto) 0.4 % (0.0-6.0) Basophils (%) (Auto) 0.7 % (0.0-1.0) Neutrophils # (Auto) 10.9 (2.1-6.9) Lymphocytes # (Auto) 1.5 (1.0-3.2) Monocytes # (Auto) 1.1 (0.2-0.8) Eosinophils # (Auto) 0.1 (0.0-0.4) Basophils # (Auto) 0.1 (0.0-0.1) Absolute Immature Granulocyte (auto 0.07 x10e3/uL (0-0.1) Sodium Level 135 mmol/L (136-145) Potassium Level 4.4 mmol/L (3.5-5.1) Chloride Level 99 mmol/L (98-107) Carbon Dioxide Level 26 mmol/L (22-29) Anion Gap 14.4 mmol/L (8-16) Blood Urea Nitrogen 18 mg/dL (7-26) Creatinine 0.98 mg/dL (0.72-1.25) Estimat Glomerular Filtration Rate > 60 ML/MIN (60-) BUN/Creatinine Ratio 18 (6-25) Glucose Level 167 mg/dL (74-118) Calcium Level 9.8 mg/dL (8.4-10.2) Total Bilirubin 0.6 mg/dL (0.2-1.2) Aspartate Amino Transf (AST/SGOT) 38 IU/L (5-34) Alanine Aminotransferase (ALT/SGPT) 41 IU/L (0-55) Alkaline Phosphatase 97 IU/L (40-150) Creatine Kinase 16 IU/L (30-200) Creatine Kinase MB 0.40 ng/mL (0-5.0) Troponin I 0.031 ng/mL (0-0.300) Total Protein 7.6 g/dL (6.5-8.1) Albumin 2.7 g/dL (3.5-5.0) Globulin 4.9 g/dL (2.3-3.5) Albumin/Globulin Ratio 0.6 (0.8-2.0) Assessment & Plan Last Vital Signs Date Time Temp Pulse Resp B/P (MAP) Pulse Ox O2 Delivery O2 Flow Rate FiO2 06/19/20 10:38 102 29 146/60 94 Room Air 06/19/20 10:17 97.6 Home Meds Reported Medications Levofloxacin (LEVAQUIN) 500 Mg Tablet, 500 MG PO DAILY, TAB 03/22/17 Guaifenesin/Codeine Phosphate (CHERATUSSIN AC SYRUP) 118 Ml Liquid, 10 ML PO Q4HR PRN for COUGH 03/22/17 Albuterol Sulfate (PROVENTIL HFA) 6.7 Gm Hfa.aer.ad, 2 INH IH Q4HR 03/22/17 Methylprednisolone (MEDROL DOSE PACK) 4 Mg/Dose Pack Tab 03/22/17 Nifedipine (NIFEDICAL XL) 30 Mg Tab.er.24, 60 MG PO DAILY, TAB 03/22/17 Insulin Detemir (LEVEMIR) 100 Unit/1 Ml Vial, 40 UNITS SQ QD17 03/17/17 Insulin Detemir (LEVEMIR) 100 Unit/1 Ml Vial, 20 UNITS SQ QAM 03/17/17 Insulin Lispro (HUMALOG) 100 Unit/1 Ml Cartridge, 8 UNITS SQ TID 03/17/17 Diazepam (DIAZEPAM) 5 Mg Tablet, 5 MG PO Daily PRN for AGITATION, #30 TAB 03/17/17 Tiotropium [place] (SPIRIVA) 18 Mcg Cap.w.dev, 18 MCG INH DAILY, BOTTLE 03/17/17 Temazepam (TEMAZEPAM) 15 Mg Capsule, 30 MG PO HS 03/17/17 Omeprazole (OMEPRAZOLE) 20 Mg Tablet.dr, 20 MG PO DAILY 03/17/17 Montelukast Sodium (MONTELUKAST SODIUM) 10 Mg Tablet, 10 MG PO DAILY, #30 TAB 03/17/17 Losartan Potassium (LOSARTAN POTASSIUM) 100 Mg Tablet, 50 MG PO BID, TAB 03/17/17 Levothyroxine Sodium (Levothroid) 125 Mcg Tablet, 125 MCG PO DAILY 05/16/12 Digoxin (Digitek) 125 Mcg Tablet, every other day 05/16/12 Metoprolol Tartrate (Lopressor) 50 Mg Tablet, 50 PO BID 05/16/12 Warfarin Sodium (Coumadin) 4 Mg Tablet, 4 MG PO DAILY 05/16/12 JILLIAN MARTINEZ, Jun 19, 2020 12:34
[2020-06-19] MEDS ORDERED: SODIUM CHLORIDE 0.9% 50ML 50 ML ONE (13:14)
[2020-06-19] MEDS ORDERED: IOPAMIDOL 370 MG/ML 200 ML INFUS..BTL INJ ONE (13:14)
--- NOTE | 2020-06-19 13:44 | Diagnostic Imaging Report ---
CT of the chest, abdomen, and pelvis, with contrast. History: Weight loss. Comparison: CT chest with contrast from 08/26/2017, CT abdomen/pelvis with contrast 03/16/2017. Technique: Multidetector CT scanning of the chest, abdomen and pelvis was performed after intravenous administration of contrast. Coronal and sagittal multiplanar reformations were obtained. RADIATION DOSE: Total DLP: 1021.45 mGy*cm Dose modulation, iterative reconstruction, and/or weight based adjustment of the mA/kV was utilized to reduce the radiation dose to as low as reasonably achievable. FINDINGS: The thyroid and remaining visualized structures within the base of the neck demonstrate no significant abnormalities. There is stable ectasia of the ascending thoracic aorta measuring up to 3.9 cm. The descending thoracic aorta is normal course and caliber with atherosclerotic calcifications within its course and branch vessels including the coronary arteries. The main pulmonary artery measures 3.8 cm in maximal diameter. There is stable mild prominence of the left atrium. There is no abnormal pericardial fluid present. There is calcification of the aortic and mitral valves. Normal-sized mediastinal lymph nodes noted. Stable mildly prominent right hilar lymph node again noted measuring up to 1.6 cm (axial image 27). There is no new abnormal axillary, mediastinal, or hilar lymph node enlargement. The trachea and proximal airways are patent. There is a 1.1 cm groundglass opacity identified within the right upper lobe (axial image 12) which is unchanged from the prior examination from 08/26/2017 suggesting a benign etiology. Scattered areas of subsegmental atelectasis noted. Stable scarring/atelectasis noted within the medial left lower lobe. There is no evidence for consolidation, pneumothorax, mass, new/suspicious nodule, or pleural effusion. Again identified are postsurgical changes from left hepatectomy. The remainder the liver is normal in attenuation without evidence for focal abnormality. The gallbladder is unremarkable. There is no biliary ductal dilatation. The spleen, pancreas, and bilateral adrenal glands are unremarkable. The kidneys are normal in size and location and enhance symmetrically. Punctate nonobstructing stones are identified within the inferior pole of the kidneys bilaterally. There is no evidence for hydronephrosis. A 3.1 cm simple cyst is identified arising off the superior pole of the left kidney. An additional stable subcentimeter hypodensities identified within the left kidney which is too small to definitively characterize but likely represents a cyst. No ureteral stone or dilatation is appreciated. The urinary bladder demonstrates no significant abnormalities. The prostate is mildly enlarged and contains dystrophic calcifications. The abdominal aorta is normal in caliber with extensive atherosclerotic calcifications within course and branch vessels. The IVC is unremarkable. Please note evaluation the bowel is limited without the use of enteric contrast material. There is mild circumferential wall thickening of the gastric antrum without adjacent inflammatory change. The visualized loops of small and large bowel demonstrate no evidence of obstruction or inflammation. Diverticula are noted within the descending and sigmoid colon without adjacent inflammatory changes suggest acute diverticulitis. There is no ascites or intraperitoneal free air. No abnormally enlarged lymph nodes are identified within the abdomen or pelvis. There are small bilateral fat-containing inguinal hernias. There are postsurgical changes from prior median sternotomy. Multiple remote/healed left-sided posterior rib fractures are noted. Mild compression deformities again noted involving the T6 vertebral body which was not present on the prior examination. Chronic L1 compression deformity again noted. There are degenerative changes noted within the thoracolumbar spine. There is no evidence for acute fracture or destructive process. The extrathoracic and extraperitoneal soft tissues are unremarkable. IMPRESSION: 1. Stable 11 mm groundglass opacity noted within the right upper lobe, unchanged from prior examinations dating back to 2017 suggesting a benign etiology. No new/suspicious pulmonary nodule identified. 2. Calcific aortic atherosclerosis, coronary artery disease, and calcification of the aortic and mitral valves. Prominence of the main pulmonary artery which can be seen in the setting of pulmonary hypertension. 3. 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 4. Punctate bilateral nonobstructing nephrolithiasis. 5. Wall thickening noted of the gastric antrum, similar to the prior examination and may reflect sequela of prior inflammation/gastritis. 6. Diverticulosis coli without evidence for acute diverticulitis. 7. Mild T6 compression deformity which was not present on the prior examination from 08/26/2017. Stable/chronic appearing left-sided rib fractures and L1 compression deformity again noted. Signed by: Dr. Donnell Snider MD on 06/19/2020 1:40 PM
--- NOTE | 2020-06-19 13:49 | Emergency Department Note ---
History of Present Illnes History of Present Illness Chief Complaint: General Medicine Complaints History of Present Illness This is a 89 year old male arrives to the ED with complaints generalized weakness and malaise for several months. . Historian: Patient, Family Member Arrival Mode: Car Onset (how long ago): week(s) Severity: mild Onset quality: gradual Progression: worsening Chronicity: new Past Medical/Family History Physician Review I have reviewed the patient's past medical and family history. Any updates have been documented here. 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 Social History Smoking Cessation: Former smoker Counseling Performed: No Alcohol Use: None Any Illegal Drug Use: No Physically hurt or threatened: No Other Last Tetanus: UTD Any Pre-Existing Lines (PICC,: No Review of Systems Review of Systems Constitutional: Reports as per HPI, Reports malaise EENTM: Reports no symptoms Cardiovascular: Reports no symptoms Respiratory: Reports no symptoms Gastrointestinal: Reports no symptoms Genitourinary: Reports no symptoms Musculoskeletal: Reports no symptoms Integumentary: Reports no symptoms Neurological: Reports no symptoms Psychological: Reports no symptoms Endocrine: Reports no symptoms Hematological/Lymphatic: Reports no symptoms Physical Exam Related Data Allergies: Coded Allergies: Penicillins (Verified Allergy, Unknown, 12/29/17) Sulfa (Sulfonamide Antibiotics) (Verified Allergy, Unknown, 12/29/17) Triage Vital Signs Vital Signs Date Time Temp Pulse Resp B/P (MAP) Pulse Ox O2 Delivery O2 Flow Rate FiO2 06/19/20 10:17 97.6 90 16 124/64 96 Room Air Vital signs reviewed: Yes Physical Exam CONSTITUTIONAL Constitutional: Present well-developed HENT HENT: Present normocephalic, Present atraumatic, Present oropharynx clear/moist, Present nose normal HENT L/R: Present left ext ear normal, Present right ext ear normal EYES Eyes: Reports PERRL, Reports conjunctivae normal NECK Neck: Present ROM normal PULMONARY Pulmonary: Present effort normal, Present breath sounds normal CARDIOVASCULAR Cardiovascular: Present regular rhythm, Present heart sounds normal, Present capillary refill normal, Present normal rate GASTROINTESTINAL Abdominal: Present soft, Present nontender, Present bowel sounds normal GENITOURINARY Genitourinary: Present exam deferred SKIN Skin: Present warm, Present dry MUSCULOSKELETAL Musculoskeletal: Present ROM normal NEUROLOGICAL Neurological: Present alert PSYCHOLOGICAL Psychological: Present mood/affect normal Results Laboratory Result Diagram: 06/19/20 1020 Laboratory Laboratory Tests Test 06/19/20 10:20 White Blood Count 13.69 x10e3/uL (4.8-10.8) Red Blood Count 4.40 x10e6/uL (4.3-5.7) Hemoglobin 11.3 g/dL (14.0-18.0) Hematocrit 37.7 % (38.2-49.6) Mean Corpuscular Volume 85.7 fL (81-99) Mean Corpuscular Hemoglobin 25.7 pg (28-32) Mean Corpuscular Hemoglobin Concent 30.0 g/dL (31-35) Red Cell Distribution Width 14.6 % (11.7-14.4) Platelet Count 490 x10e3/uL (140-360) Neutrophils (%) (Auto) 79.4 % (38.7-80.0) Lymphocytes (%) (Auto) 10.7 % (18.0-39.1) Monocytes (%) (Auto) 8.3 % (4.4-11.3) Eosinophils (%) (Auto) 0.4 % (0.0-6.0) Basophils (%) (Auto) 0.7 % (0.0-1.0) Neutrophils # (Auto) 10.9 (2.1-6.9) Lymphocytes # (Auto) 1.5 (1.0-3.2) Monocytes # (Auto) 1.1 (0.2-0.8) Eosinophils # (Auto) 0.1 (0.0-0.4) Basophils # (Auto) 0.1 (0.0-0.1) Absolute Immature Granulocyte (auto 0.07 x10e3/uL (0-0.1) Lab results reviewed: Yes Imaging Imaging results reviewed: Yes Procedures 12 Lead ECG Interpretation ECG Interpretation : ECG: ECG 1 Prior ECG tracings: reviewed Rhythm: sinus rhythm Rate: normal QRS axis: normal ST segments normal: Yes T waves normal: Yes Other findings: no other findings Clinical Impression: normal ECG Assessment & Plan Medical Decision Making MDM 89-year-old male brought to the ED with generalized malaise and weakness. Patient admitted for further workup and monitoring. Assessment & Plan Final Impression: (1) Weakness generalized Depart Disposition: ADMITTED Last Vital Signs Date Time Temp Pulse Resp B/P (MAP) Pulse Ox O2 Delivery O2 Flow Rate FiO2 06/19/20 10:38 102 29 146/60 94 Room Air 06/19/20 10:17 97.6 Home Meds Reported Medications Nifedipine (NIFEDICAL XL) 30 Mg Tab.er.24, 60 MG PO DAILY, TAB 03/22/17 Diazepam (DIAZEPAM) 5 Mg Tablet, 5 MG PO Daily PRN for AGITATION, #30 TAB 03/17/17 Tiotropium [place] (SPIRIVA) 18 Mcg Cap.w.dev, 18 MCG INH DAILY, BOTTLE 03/17/17 Temazepam (TEMAZEPAM) 15 Mg Capsule, 30 MG PO HS 03/17/17 Omeprazole (OMEPRAZOLE) 20 Mg Tablet.dr, 20 MG PO DAILY 03/17/17 Montelukast Sodium (MONTELUKAST SODIUM) 10 Mg Tablet, 10 MG PO DAILY, #30 TAB 03/17/17 Losartan Potassium (LOSARTAN POTASSIUM) 100 Mg Tablet, 50 MG PO BID, TAB 03/17/17 Levothyroxine Sodium (Levothroid) 125 Mcg Tablet, 125 MCG PO DAILY 05/16/12 Digoxin (Digitek) 125 Mcg Tablet, every other day 05/16/12 Metoprolol Tartrate (Lopressor) 50 Mg Tablet, 50 PO BID 05/16/12 Warfarin Sodium (Coumadin) 4 Mg Tablet, 4 MG PO DAILY 05/16/12 Discontinued Reported Medications Levofloxacin (LEVAQUIN) 500 Mg Tablet, 500 MG PO DAILY, TAB 03/22/17 Guaifenesin/Codeine Phosphate (CHERATUSSIN AC SYRUP) 118 Ml Liquid, 10 ML PO Q4HR PRN for COUGH 03/22/17 Albuterol Sulfate (PROVENTIL HFA) 6.7 Gm Hfa.aer.ad, 2 INH IH Q4HR 03/22/17 Methylprednisolone (MEDROL DOSE PACK) 4 Mg/Dose Pack Tab 03/22/17 Insulin Detemir (LEVEMIR) 100 Unit/1 Ml Vial, 40 UNITS SQ QD17 03/17/17 Insulin Detemir (LEVEMIR) 100 Unit/1 Ml Vial, 20 UNITS SQ QAM 03/17/17 Insulin Lispro (HUMALOG) 100 Unit/1 Ml Cartridge, 8 UNITS SQ TID 03/17/17 JILLIAN MARTINEZ DO Jun 19, 2020 13:49
--- OUTSIDE RECORDS SUMMARY | 2020-06-19 15:21 | XMS REPORT | Continuity of Care Document ---
Author Author [facility] Organization [facility] Address [address] [place] [id number] Phone Unavailable Care Team Providers Care Small Offset Printer Name Role Phone DELILAHReneaIndra Attphys Unavailable Cyrus THOMASON Attphys Unavailable Abraham HANDLEY Attphys Unavailable Payers Payer Name Policy Type Policy Number Effective Date Expiration Date S ource Problems This patient has no known problems. Allergies, Adverse Reactions, Alerts Allergy Name Allergy Type Status Severity Reaction(s) Onset Date Inacti ve Date Treating Clinician Comments Source metoclopramide HCl DA Active U 2018-03-02 00:00:00 [facility] Penicillins DA Active U 2018-03-02 00:00:00 [facility] Sulfa (Sulfonamide Antibiotics) DA Active U 2018-03-02 00 :00:00 [facility] codeine DA Active U 2018-03-02 00:00:00 [facility] Medications This patient has no known medications. Procedures This patient has no known procedures. Results Test Description Test Time Test Comments Results Result Comments Source CT ABDOMEN/PELVIS W 2020-06-19 13:13:00 [facility] [address] [place], [place] [address] Patient Name: LINK HURD MR #: [id number] : 1930 Age/Sex: 89/M Req #: [id number] Adm Physician: Ordered by: JILLIAN MARTINEZ DO Report #: [id number] Location: ER Room/Bed: Procedure: [id number] CT/CT ABDOMEN/PELVIS W Exam Date: 06/19/20 Exam Time: 1247 REPORT STATUS: Signed CT of the chest, abdomen, and pelvis, with contrast. History: Weight loss. Comparison: CT chest with contrast from 08/26/2017, CT abdomen/pelvis with contrast 03/16/2017. Technique: Multidetector CT scanning of the chest, abdomen and pelvis was performed after intravenous administration of contrast. Coronal and sagittal multiplanar reformations were obtained. RADIATION DOSE: Total DLP: 1021.45 mGy*cm Dose modulation, iterative reconstruction, and/or weight based adjustment of the mA/kV was utilized to reduce the radiation dose to as low as reasonably achievable. FINDINGS: The thyroid and remaining visu alized structures within the base of the neck demonstrate no significant abnormalities. There is stable ectasia of the ascending thoracic aorta measuring up to 3.9 cm. The descending thoracic aorta is normal course and caliber with atherosclerotic calcifications within its course and branch vessels including the coronary arteries. The main pulmonary artery measures 3.8 cm in maximal diameter. There is stable mild prominence of the left atrium. There is no abnormal pericardial fluid present. There is calcification of the aortic and mitral valves. Normal-sized mediastinal lymph nodes noted. Stable mildly prominent right hilar lymph node again noted measuring up to 1.6 cm (axial image 27). There is no new abnormal axillary, mediastinal, or hilar lymph node enlargement. The trachea and proximal airways are patent. There is a 1.1 cm groundglass opacity identified within the right upper lobe (axial image 12) which is unchanged from the prior examination from 08/26/2017 nicole ggesting a benign etiology. Scattered areas of subsegmental atelectasis noted. Stable scarring/atelectasis noted within the medial left lower lobe. There is no evidence for consolidation, pneumothorax, mass, new/suspicious nodule, or pleural effusion. Again identified are postsurgical changes from left hepatectomy. The remainder the liver is normal in attenuation without evidence for focal abnormality. The gallbladder is unremarkable. There is no biliary ductal dilatation. The spleen, pancreas, and bilateral adrenal glands are unremarkable. The kidneys are normal in size and location and enhance symmetrically. Punctate nonobstructing stones are identified within the inferior pole of the kidneys bilaterally. There is no evidence for hydronephrosis. A 3.1 cm simple cyst is identified arising off the superior pole of the left kidney. An additional stable subcentimeter hypodensities identified within the left kidney which is too small to definitively characterize but likely represents a cyst. No ureteral stone or dilatation is appreciated. The urinary bladder demonstrates no significant abnormalities. The prostate is mildly enlarged and contains dystrophic calcifications. The abdominal aorta is normal in caliber with extensive atherosclerotic calcifications within course and branch vessels. The IVC is unremarkable. Please note evaluation the bowel is limited without the use of enteric contrast material. There is mild circumferential wall thickening of the gastric antrum without adjacent inflammatory change. The visualized loops of small and large bowel demonstrate no evidence of obstruction or inflammation. Diverticula are noted within the descending and sigmoid colon without adjacent inflammatory changes suggest acute diverticulitis. There is no ascites or intraperitoneal free air. No abnormally enlarged lymph nodes are identified within the abdomen or pelvis. There are small bilateral fat-containing inguinal hernias. There are postsurgical changes from prior median sternotomy. Multiple remote/healed left-sided posterior rib fractures are noted. Mild compression deformities again noted involving the T6 vertebral body which was not present on the prior examination. Chronic L1 compression deformity again noted. There are degenerative changes noted within the thoracolumbar spine. There is no evidence for acute fracture or destructive process. The extrathoracic and extraperitoneal soft tissues are unremarkable. IMPRESSION: 1. Stable 11 mm groundglass opacity noted within the right upper lobe, unchanged from prior examinations dating back to 2017 suggesting a benign etiology. No new/suspicious pulmonary nodule identified. 2. Calcific aortic atherosclerosis, coronary artery disease, and calcification of the aortic and mitral valves. Prominence of the main pulmonary artery which can be seen in the setting of pulmonary hypertension. 3. 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 4. Punctate bilateral nonobstructing nephrolithiasis. 5. Wall thickening noted of the gastric antrum, similar to the prior examination and may reflect sequela of prior inflammation/gastritis. 6. Diverticulosis coli without evidence for acute diverticulitis. 7. Mild T6 compression deformity which was not present on the prior examination from 08/26/2017. Stable/chronic appearing left-sided rib fractures and L1 compression deformity again noted. Signed by: Dr. Donnell Snider MD on 06/19/2020 1:40 PM Dictated By: DONNELL SNIDER MD 1340 Transcribed By: BRITNEY on 06/19/20 1340 COPY TO: JILLIAN MARTINEZ DO CT CHEST W 2020-06-19 13:13:00 [place] [address] Patient Name: LINK HURD MR #: [id number] : 1930 Age/Sex: 89/M Req #: [id number] Adm Physician: Ordered by: JILLIAN MARTINEZ DO Report #: [id number] Location: ER Room/Bed: Procedure: [id number] CT/CT CHEST W Exam Date: 06/19/20 Exam Time: 1247 REPORT STATUS: Signed CT of the chest, abdomen, and pelvis, with contrast. History: Weight loss. Comparison: CT chest with contrast from 08/26/2017, CT abdomen/pelvis with contrast 03/16/2017. Technique: Multidetector CT scanning of the chest, abdomen and pelvis was performed after intravenous administration of contrast. Coronal and sagittal multiplanar reformations were obtained. RADIATION DOSE: Total DLP: 1021.45 mGy*cm Dose modulation, iterative reconstruction, and/or weight based adjustment of the mA/kV was utilized to reduce the radiation dose to as low as reasonably achievable. FINDINGS: The thyroid and remaining visualized structures within the base of the neck demonstrate no significant abnormalities. There is stable ectasia of the ascending thoracic aorta measuring up to 3.9 cm. The descending thoracic aorta is normal course and caliber with atherosclerotic calcifications within its course and branch vessels including the coronary arteries. The main pulmonary artery measures 3.8 cm in maximal diameter. There is stable mild prominence of the left atrium. There is no abnormal pericardial fluid present. There is calcification of the aortic and mitral valves. Normal-sized mediastinal lymph nodes noted. Stable mildly prominent right hilar lymph node again noted measuring up to 1.6 cm (axial image 27). There is no new abnormal axillary, mediastinal, or hilar lymph node enlargement. The trachea and proximal airways are patent. There is a 1.1 cm groundglass opacity identified within the right upper lobe (axial image 12) which is unchanged from the prior examination from 08/26/2017 suggesting a benign etiology. Scattered areas of subsegmental atelectasis noted. Stable scarring/atelectasis noted within the medial left lower lobe. There is no evidence for consolidation, pneumothorax, mass, new/suspicious nodule, or pleural effusion. Again identified are postsurgical changes from left hepatectomy. The remainder the liver is normal in attenuation without evidence for focal abnormality. The gallbladder is unremarkable. There is no biliary ductal dilatation. The spleen, pancreas, and bilateral adrenal glands are unremarkable. The kidneys are normal in size and location and enhance symmetrically. Punctate nonobstructing stones are identified within the inferior pole of the kidneys bilaterally. There is no evidence for hydronephrosis. A 3.1 cm simple cyst is identified arising off the superior pole of the left kidney. An additional stable subcentimeter hypodensities identified within the left kidney which is too small to definitively characterize but likely represents a cyst. No ureteral stone or dilatation is appreciated. The urinary bladder demonstrates no significant abnormalities. The prostate is mildly enlarged and contains dystrophic calcifications. The abdominal aorta is normal in caliber with extensive atherosclerotic calcifications within course and branch vessels. The IVC is unremarkable. Please note evaluation the bowel is limited without the use of enteric contrast material. There is mild circumferential wall thickening of the gastric antrum without adjacent inflammatory change. The visualized loops of small and large bowel demonstrate no evidence of obstruction or inflammation. Diverticula are noted within the descending and sigmoid colon without adjacent inflammatory changes suggest acute diverticulitis. There is no ascites or intraperitoneal free air. No abnormally enlarged lymph nodes are identified within the abdomen or pelvis. There are small bilateral fat-containing inguinal hernias. There are postsurgical changes from prior median sternotomy. Multiple remote/healed left-sided posterior rib fractures are noted. Mild compression deformities again noted involving the T6 vertebral body which was not present on the prior examination. Chronic L1 compression deformity again noted. There are degenerative changes noted within the thoracolumbar spine. There is no evidence for acute fracture or destructive process. The extrathoracic and extraperitoneal soft tissues are unremarkable. IMPRESSION: 1. Stable 11 mm groundglass opacity noted within the right upper lobe, unchanged from prior examinations dating back to 2017 suggesting a benign etiology. No new/suspicious pulmonary nodule identified. 2. Calcific aortic atherosclerosis, coronary artery disease, and calcification of the aortic and mitral valves. Prominence of the main pulmonary artery which can be seen in the setting of pulmonary hypertension. 3. 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 4. Punctate bilateral nonobstructing nephrolithiasis. 5. Wall thickening noted of the gastric antrum, similar to the prior examination and may reflect sequela of prior inflammation/gastritis. 6. Diverticulosis coli without evidence for acute diverticulitis. 7. Mild T6 compression deformity which was not present on the prior examination from 08/26/2017. Stable/chronic appearing left-sided rib fractures and L1 compression deformity again noted. Signed by: Dr. Donnell Snider MD on 06/19/2020 1:40 PM Dictated By: DONNELL SNIDER MD 1340 Transcribed By: BRITNEY on 06/19/20 1340 COPY TO: JILLIAN MARTINEZ DO CHEST SINGLE (PORTABLE) 2020-06-19 11:08:00 [place] [address] Patient Name: LINK HURD MR #: [id number] : 1930 Age/Sex: 89/M Req #: [id number] [facility] Physician: Ordered by: JILLIAN MARTINEZ DO Report #: [id number] Location: ER Room/Bed: Procedure: [id number] DX/CHEST SINGLE (PORTABLE) Exam Date: 06/19/20 Exam Time: 1039 REPORT STATUS: Signed EXAM: CHEST SINGLE (PORTABLE) DATE: 06/19/2020 10:39 AM INDICATION: Weakness COMPARISON: None FINDINGS: There are postsurgical changes from prior median sternotomy. A suspected subcentimeter calcified granulomas noted within the right upper lobe. Linear opacity noted within the left and lung zones suggestive of subsegmental atelectasis. There is no evidence for large focal consolidation, pneumothorax, or significant volume pleural effusion. The cardiomediastinal silhouette is within normal limits. Atherosclerotic indications are noted within the thoracic aorta. No acute osseous abnormality is identified. IMPRESSION: No acute cardiopulmonary process identified. Signed by: Dr. Donnell Snider MD on 06/19/2020 11:10 AM Dictated By: DONNELL SNIDER MD 1110 Transcribed By: BRITNEY on 06/19/20 1110 COPY TO: JILLIAN MARTINEZ DO URINALYSIS COMPLETE 2020-05-31 22:57:00 Test Item UA [...] 0-2 #/LPF 0-5 Urine Source? Clean CatchURINALYSIS [id number] 22:52:00* Test Item Value Reference Range Interpretation [...] Urine Source? Clean Catch- XR CHEST 1 [id number] 21:53:00 FAX: Carlos Deng MD [phone] [place]: St: REG FAX: Y Sudhir Reardon DO [phone] Name: LINK HURD [facility] : 1930 Age/S: 89/M [address] [facility] Unit #: [id number] Loc: [place] [address] Phys: Carlos Deng MD Acct: [id number] Dis Date: Status: REG ER PHONE #: [phone] Exam Date: 05/31/20202119 FAX #: [phone] Reason: SHORTNESS OF BREATH EXAMS: CPT CODE: [id number] XR CHEST 1 V 69234 HISTORY: SHORTNESS OF BREATH TECHNIQUE: AP chest x-ray COMPARISON: 06/29/19 FINDINGS: No airspace consolidation or pleural effusion. Mid left lung field platelike atelectasis. Right apical calcified granulomas. Mild cardiomegaly. Thoraci c aortic vascular calcification. Sternotomy wires. Degenerative changes of the spine and shoulders. IMPRESSION: No acute findings or significant interval change. LOCATION: at 2152 Reported and signed by: Jessica almeida D.O. CC: Carlos Deng MD; Sudhir Reardon DO Technologist: SHON POWERS, RT(R) Trnscrd Date/Time/By: 05/31/2020 (2152) : By: [email or web address] Orig Print D/T: S: 0 05/31/2020 (2155) PAGE 1 Signed Re port B-TYPE NATRIURETIC [id number] 21:09:00 * Test Item Value Reference Range Interpretation Comments B-TYPE NATRIURETIC PEPTIDE (test code = BNP) 549.37 pgram/mL 0-100 H Coronavirus 2019 nCoV [id number] 20:51:00* Test Item Value Reference Range Interpretation Comments Coronavirus 2019 nCoV Bedside (test code = [id number]) Negative Is patient requiring admission or transfer? YIndication for rapid COVID-19 testi ng: Mod Clinical SuspicionBASIC METABOLIC [id number] 20:40:00* Test Item Value Reference Range Interpretation [...] CA) 9.2 mg/dL 8.5-10.1 N HEPATIC FUNCTION [id number] 20:40:00* Test Item Value Reference Range Interpretation [...] code = LDH) 197 IUnit/L 84-246 N [id number] 20:40:00* Test Item Value Reference Range Interpretation Comments LIPASE (test code = LIP) 155 U/L 73.0-393.0 N [id number] 20:40:00* Test Item Value Reference Range Interpretation Comments TROPONIN-I (test code = TROPI) <0.015 ng/mL 0-0.045 N [id number] 20:40:00* Test Item Value Reference Range Interpretation Comments FERRITIN (test code = ALIZA) 83 ng/mL 8-388 N C REACTIVE [id number] 20:40:00* Test Item Value Reference Range Interpretation Comments C REACTIVE PROTEIN (test code = CRP) 0.87 mg/dL 0-0.3 H LACTIC [id number] 20:40:00* Test Item Value Reference Range Interpretation Comments LACTIC ACID (test code = LACT) 1.1 mmol/L 0.4-1.9 N CBC W/AUTO [id number] 20:17:00* Test Item Value Reference Range Interpretation [...] K/mm3 0.0-0.1 N - CT CHEST W/O [id number] 11:59:00 Name: VANNESSALINK Sue [facility] : 1930 Age/S: 89 / M [address] Unit #: [id number] Loc: [place] [address] Phys: Cristian Felder MD Acct: [id number] Dis Date: Status: REG CLI PHONE #: [phone] Exam Date: 02/20/2020 1120 FAX #: [phone] Reason: R91.8ABNORMAL FINDINGS IN IMAGES OF LUNG FIELD EXAMS: CPT CODE: [id number] CT CHEST W/O CONTRAST 19769 HISTORY: R91.8. COMPARISON: July 04, 2019. Location: [facility]. CT chest without contrast: Automated [...] M.D. PAGE 1 Signed Report (CONTINUED) Name: VANNESSAMarcy Rogers [facility] : 1930 Age/ S: 89 / M [address] Unit #: [id number] Loc: [place] [address] Phys: Cristian Felder MD Acct: [id number] Dis Date: Status: REG CLI PHONE #: [phone] Exam Date: 02/20/2020 1120 FAX #: [phone] Reason: R91.8ABNORMAL FINDINGS IN IMAGES OF LUNG FIELD EXAMS: CPT CODE: [id number] CT CHEST W/O CONTRAST 22768 <Continued> CC: Cristian Felder MD; Sudhir Reardon DO Technologist:Trae Cristobal RT(R),(MR),(CT) CTDI: DLP: Trnscb Date/Time: 02/20/2020 (6499) t.SDR.TH4 Orig Print D/T: S: 02/20/2020 (3508) PAGE 2 Signed Report - US ABDOMEN [id number] 10:04:00 Name: LINK HURD [facility] : 1930 Age/S: 89 / M [address] [facility] Unit #: [id number] Loc: [place] [address] Phys: Sudhir Reardon DO Acct: [id number] Dis Date: Status: REG CLI PHONE #: [phone] Exam Date: 01/25/2020 0940 FAX #: [phone] Reason: R10.84 EXAMS: CPT CODE: [id number] US ABDOMEN COMPLETE 62567 REASON FOR EXAM: R10.84 EXAM ORDER DATE: [...] hydronephrosis: none PAGE 1 Signed Report (JAYSON NUED) Name: LINK HURD [facility] : 1930 Age[facility]S: 89 / M [address] [facility] [id number] Loc: [place] [address] Phys: Sudhir Aragon DO Acct: [id number] Dis Date: Status: REG CLI PHON E #: [phone] Exam Date: 01/25/2020939 FAX #: [phone] Reason: R10.84 EXAMS : CPT CODE: [id number] US ABDO MEN COMPLETE 63987 <Continued> Left kidney: parenchyma echogenicity: Normal echogenicity [...] inferior pole of the left kidney. Location: [facility] at 1004 Reported and signed by: Reinaldo Kothari MD CC: Sudhir Reardon DO Technologist: HOLLY BENEDICT RT(R),BLAS Trnnatalieb Da te/Time: 01/25/2020 (1004) t.HARDYR.RR31 Orig Print D/T: S: 0 01/25/2020 (1012) Probe: PAGE 2 Signed Report - CT CHEST W/O [id number] 15:30:00 Name: LINK HURD [facility] : 1930 Age/S: 89 / M [address] Unit #: [id number] Loc: [place] [address] Phys: Sudhir Reardon DO Acct: [id number] Dis Date: Status: REG CLI PHONE #: [phone] Exam Date: 07/04/2019 1514 FAX #: [phone] Reason: PNEUMONIA EXAMS: CPT CODE: [id number] CT CHEST W/O CONTRAST 77709 REASON FOR EXAM: PNEUMONIA EXAM ORDER DATE: [...] 1 Signed Report (CONTINUED) Name: LINK HURD [facility] : 1930 Age/S: 89 / M [address] Unit #: [id number] Loc: [place] [address] Ph ys: Sudhir Reardon DO Acct: [id number] Dis Date: Status: REG CLI PHONE #: [phone] Exam Date: 07/04/2019 1514 FAX #: [phone] Reason: PNEUMONIA EXAMS: CPT CODE: [id number] CT CHEST W/O CONTRAST 28011 <Continued> right ribs as well. Visualized upper [...] MD CC: Sudhir Reardon DO Technologi st:RAUL CORBIN, RT(R) CT CTDI: DLP: Trnscb Date/Time: (1530) CarolinR.RR31 Orig Print D/T: S: 07/04/2019 ( 1533) PAGE 2 Signed Report [id number] 18:02:00* Test Item Value Reference Range Interpretation Comments DIGOXIN (test code = DIG) 0.3 ng/mL 0.90-2.0 L NO TE: Spironolactone interference may cause a decrease inreported Digoxin results of 11-30 %. PROTHROMBIN [id number] 17:31:00* Test Item Value Reference Range Interpretation [...] PATIENT ON ANTICOAGULANTS? YLIST ANTICOAGULANTS COUMADINTHROMBOPLASTIN TIME [id number] 17:31:00* Test Item Value Reference Range Interpretation Comments THROMBOPLASTIN TIME PARTIAL (test code = PTT) 41.5 seconds 25.0-36. 5 H IS PATIENT ON ANTICOAGULANTS? YLIST ANTICOAGULANTS COUMADINB-TYPE NATRIURETIC [id number] 16:42:00* Test Item Value Reference Range Interpretation Comments B-TYPE NATRIURETIC PEPTIDE (test code = BNP) 189.98 pgram/mL 0-100 H BASIC METABOLIC [id number] 16:24:00* Test Item Value Reference Range Interpretation [...] code = CA) 8.9 mg/dL 8.5-10.1 N [id number] 16:24:00* Test Item Value Reference Range Interpretation Comments TROPONIN-I (test code = TROPI) <0.015 ng/mL 0-0.045 N CBC W/O [id number] 15:34:00* Test Item Value Reference Range Interpretation [...] fL 6.7-11.0 N - XR CHEST 1 [id number] 15:05:00 FAX: Sudhir Peralta DO [phone] [place]: B St: [facility] FAX: Lizbet Song DO Name: LINK HURD [facility] : 1930 Age[facility]S: 89/M [address] [facility] Unit #: [id number] Loc: [place] [address] Phys: Lizbet Song DO Acct: [id number] Dis Date: Status: REG ER PHONE #: [phone] Exam Date: 06/29/2019 4540 FAX #: [phone] Reason: CHEST PAIN EXAMS: CPT CODE: [id number] XR CHEST 1 V 51804 REASON FOR EXAM: CHEST PAIN EXAM ORDER DATE: 06/29/2019 2:31 PM Ordering Brittny: Lizbet Song DO PROCEDURE: - XR CHEST [...] fractures noted. IMPRESSION: No active disease. at 1508 Reported and signed by: Umair Sanchez M.D. CC: Sudhir Reardon DO; Lizbet Song DO Technologist: Maci Jason(Renea) Trnscrd Date/Time/By: 06/29/2019 (0873) : By: LeidyL Orig Print D/T: S: 06/29/2019 (0503) PAGE 1 Signed Report CHEST SINGLE (PORTABLE) [place] [address] Patient Name: LINK HURD MR #: [id number] : 1930 Age/Sex: 87/M Req #: [id number] Adm Physician: Ordered by: JONNA THOMASON MD Report #: [id number] Location: ER Room/Bed: Procedure: [id number] DX/CHEST SINGLE (PORTABLE) Exam Date: 12/29/17 Exam Time: 0855 REPORT STAT US: Signed PROCEDURE: CHEST SINGLE (PORTABLE) COMPARISON: [facility], DX, CHEST 2 VIEWS, 03/19/2017, 5:30. INDICATIONS: [...] DO on 12/29/17 1012 Transcribed By: [facility] E on 12/29/17 1012 COPY TO: JONNA THOMASON MD CT CHEST W [place] [address] Patient Name: LINK HURD MR #: [id number] : 1930 Age/Sex: 87/M Req #: [id number] Adm Physician: Ordered by: KAREN HANDLEY MD Report #: [id number] Location: RAD Ro om/Bed: Procedure: [id number] CT/CT CHEST W Exam Date : 08/26/17 [...] BRITNEY on 08/26/17 1346 COPY TO: KAREN HNADLEY MD
[2020-06-19 15:44] VITALS: BP 133/72
[2020-06-19 16:34] VITALS: BP 133/72
--- NOTE | 2020-06-19 16:46 | NUR ---
Unable to complete admission history at this time. [employer] is having errors and unable to complete and save the intervention at this time.
--- NOTE | 2020-06-19 19:30 | NUR ---
BEDSIDE SHIFT REPORT RECEIVED. PATIENT IS RESTING IN BED, AAOX3. RESP EVEN AND UNLABORED. NO ACUTE DISTRESS NOTED. EDUCATED PT ABOUT FALL PRECAUTIONS. PT VERBALIZED UNDERSTANDING. CALL LIGHT WITH IN EASY REACH. INSTRUCTED PT TO USE CALL LIGHT FOR ALL THE NEEDS. BED IS LOW AND LOCKED. SIDE RAILS X2. BED ALARM IS ON. PT DENIES NEEDS AT THIS TIME. CONTINUE TO MONITOR CLOSELY.
[2020-06-19 19:58] VITALS: BP 115/60
[2020-06-19 19:59] VITALS: BP 115/60
[2020-06-19] MEDS ORDERED: DEXTROSE 50% SYRINGE 50 ML IV PRN (20:15)
[2020-06-19] MEDS ORDERED: MELATONIN 5 MG TABLET PO PRN (20:15)
[2020-06-19] MEDS ORDERED: ACETAMINOPHEN/CODEINE 300MG - 30MG TAB PO PRN (20:15)
[2020-06-19] MEDS ORDERED: ACETAMINOPHEN 325 MG TAB PO PRN (20:15)
[2020-06-19] MEDS ORDERED: HYDRALAZINE HCL 20 MG/ML VIAL IV PRN (20:15)
[2020-06-19] MEDS ORDERED: ONDANSETRON HCL INJ 2MG/ML 2ML 2 MG/ML VIAL IV PRN (20:15)
[2020-06-19] MEDS: INSULIN LISPRO 100 UNIT/1 ML 3ML VIAL SQ SCH (21:15)
[2020-06-19 23:50] VITALS: BP 115/49
[2020-06-20] VITALS (7 sets, daily range): BP systolic 115–159; BP diastolic 73–87
[2020-06-20] MEDS ORDERED: TEMAZEPAM 15 MG CAP PO PRN (00:15)
[2020-06-20] MEDS ORDERED: METOPROLOL TARTRATE INJ 1 MG/ML VIAL IV PRN (00:15)
[2020-06-20] MEDS ORDERED: POLYETHYLENE GLYCOL 3350 17 GM PACK PO PRN (00:15)
[2020-06-20 05:04] LABS: BASOPHILS # (AUTO) 0.1 (0.0-0.1); EOSINOPHILS # (AUTO) 0.2 (0.0-0.4); EOSINOPHILS % 2.2 % (0.0-6.0); HEMOGLOBIN 10.8 g/dL (14.0-18.0); LYMPHOCYTES % 21.8 % (18.0-39.1); MEAN CORPUSCULAR HGB CONC 30.9 g/dL (31-35); MEAN CORPUSCULAR VOLUME 87.5 fL (81-99); MONOCYTES # (AUTO) 1.1 (0.2-0.8); MONOCYTES % 12.2 % (4.4-11.3); NEUTROPHILS # (AUTO) 5.7 (2.1-6.9); NEUTROPHILS % 62.4 % (38.7-80.0); PLATELET COUNT 394 x10e3/uL (140-360); RED CELL DISTRIBUTION WIDTH 14.7 % (11.7-14.4)
[2020-06-20 05:23] LABS: ALANINE AMINOTRANSFERASE 42 IU/L (0-55); ALBUMIN 2.6 g/dL (3.5-5.0); ALBUMIN/GLOBULIN RATIO 0.6 (0.8-2.0); ALKALINE PHOSPHATASE 92 IU/L (40-150); ANION GAP 14.5 mmol/L (8-16); BLOOD UREA NITROGEN 17 mg/dL (7-26); BUN/CREATININE RATIO 18 (6-25); CALCIUM 10.2 mg/dL (8.4-10.2); CARBON DIOXIDE 28 mmol/L (22-29); CHLORIDE 100 mmol/L (98-107); CHOL/HDL RATIO 4.5 (3.9-4.7); CHOLESTEROL 139 MD/DL (0-199); CREATININE, SERUM 0.93 mg/dL (0.72-1.25); EST GLOMERULAR FILTRATION RATE > 60 ML/MIN (60-); GLUCOSE 122 mg/dL (74-118); HDL CHOLESTEROL 31 MG/DL (40-60); LDL CHOLESTEROL 91 MG/DL (60-130); MAGNESIUM 1.9 MG/DL (1.3-2.1); PHOSPHORUS 3.3 MG/DL (2.3-4.7); POTASSIUM 4.5 mmol/L (3.5-5.1); SODIUM 138 mmol/L (136-145); TRIGLYCERIDES 86 MG/DL (0-149)
[2020-06-20 05:50] LABS: THYROID STIMULATING HORMONE 0.511 uIU/mL (0.350-4.940)
[2020-06-20] MEDS ORDERED: LEVOTHYROXINE SODIUM 125 MCG TAB PO SCH (06:00)
--- NOTE | 2020-06-20 06:50 | NUR ---
RECEIVED BEDSIDE SHIFT REPORT FROM OFF GOING NURSE. PATIENT IS IN STABLE CONDITION, IV LINE PATENT. CALL LIGHT WITHIN REACH. BED IN THE LOWEST POSITION. BED ALARM ON.
[2020-06-20] MEDS: INSULIN LISPRO 100 UNIT/1 ML 3ML VIAL SQ SCH ×3 (08:25→16:45)
[2020-06-20] MEDS: DOCUSATE SODIUM 100 MG CAP PO SCH ×2 (08:27→16:49)
[2020-06-20] MEDS ORDERED: PANTOPRAZOLE SOD 40 MG TABEC PO SCH (09:00)
[2020-06-20] MEDS ORDERED: INSULIN GLARGINE 100 UNITS/ML VIAL SQ SCH ×2 (09:00→17:00)
--- NOTE | 2020-06-20 14:30 | NUR ---
PATIENT REFUSING TELEMETRY AT THIS TIME.
--- NOTE | 2020-06-20 14:45 | NUR ---
NOTIFIED PATIENT THAT THE SHIPPING RECEIVING MANAGER ORDERED TELEMETRY, PATIENT STILL REFUSING. STATED "MY HEART IS FINE, ITS BEEN FINE"
--- NOTE | 2020-06-20 15:36 | NUR ---
TELEMETRY APPLIED AT THIS TIME. CALLED TELE TO FIND OUT RHYTHM, ST @ 122 WITH [facility].
--- NOTE | 2020-06-20 15:42 | NUR ---
PATIENT'S SON STATES HE DOES NOT KNOW WHAT PATIENT TAKES AND WHEN HE TAKES IT. NOTIFIED JAMES BRIGHT AT THIS TIME.
[2020-06-20] MEDS ORDERED: DIAZEPAM 5 MG TAB PO PRN (16:00)
[2020-06-20] MEDS ORDERED: METOPROLOL TARTRATE 50 MG TAB PO SCH (16:15)
--- NOTE | 2020-06-20 16:43 | NUR ---
Spoke to pt at bedside regarding home health order. Pt is agreeable to home health. States he had it in the past, but does not remember the name. Agrees to use any company in network with his insurance. Choice letter signed for [facility] and [facility] staff. Copy of choice letter given to pt with each company's contact information. CM informed pt that referral will be sent to [facility] and asked that he call them within 24 hrs of discharge if he does not hear from them. Signed copy of choice letter placed in front of chart. CM called and spoke to Jaylene at [facility]. She verified that they are currently taking pt's insurance. Informed her of referral and anticipated dc today. Home health order was faxed to [phone] / . H&P not available at this time. Will have weekend CM fax to home health company tomorrow.
[2020-06-20] MEDS ORDERED: LOSARTAN POTASSIUM 100 MG TAB PO SCH (17:00)
[2020-06-20] MEDS ORDERED: WARFARIN SOD 2 MG TAB PO SCH (17:00)
[2020-06-20] MEDS ORDERED: DIGOXIN 0.125 MG TAB PO SCH (17:00)
[2020-06-20 17:32] LABS: INR 2.5; PROTHROMBIN TIME 28.7 seconds (11.9-14.5)
--- NOTE | 2020-06-20 19:20 | NUR ---
BEDSIDE SHIFT REPORT GIVEN TO ONCOMING NURSE. PATIENT IS RESTING IN BED. NO ACUTE DISTRESS NOTED. CALL LIGHT WITHIN REACH. BED IN THE LOWEST. BED ALARM ON. NIGHT NURSE AWARE OF PATIENT HAVING TO BE DISCHARGED TONIGHT.
--- NOTE | 2020-06-20 19:38 | NUR ---
SPOKE TO MD VELEZ'S LEATHER ETCHER STEFANO REGARDING F/U APPOINTMENT. CONFIRMED F/U WITH ANAID SEPULVEDA.
--- NOTE | 2020-06-20 20:20 | NUR ---
SPOKE TO KIM HURD (SON) REGARDING D/C PAPERWORK. PROVIDED D/C INSTRUCTIONS AND EDUCATION.
--- NOTE | 2020-06-20 20:43 | NUR ---
IV TO R FA D/C CATHETER TIP INTACT. [employer] DRESSING APPLIED. ALERT AND IN STABLE CONDITION. 97.8 ORAL TEMP, 68 PULSE, 115/51, 21 RR, 97%RA. DISCHARGED HOME VIA WHEELCHAIR TO FAMILY MEMBER PRIVATE VEHICLE. ESCORTED BY [employer].
[2020-06-20] MEDS ORDERED: TEMAZEPAM 15 MG CAP PO SCH (21:00)
--- NOTE | 2020-06-20 22:46 | History and Physical ---
History and Physical, Short Stay, and Discharge Summary PRIMARY CARE PHYSICIAN: Sudhir Reardon DO. CONSULTANTS: No consultants on this case at present. CHIEF COMPLAINT: Weak. HISTORY OF PRESENT ILLNESS: The patient is an 89-year-old man, who states he "quit eating," possibly due to loss of appetite. Denies depression. Reports that about one month ago he "fall, collapsed due to weakness." He denies any syncope. He states that he was not fully aware that his son was taking into the emergency department. According to the patient's son, he does have underlying dementia. PAST MEDICAL HISTORY: Liver cancer, insomnia, dementia, falls, possible asthma as the patient is on Singulair and Spiriva at home. According to the patient's son, he is also alcoholic. PAST SURGICAL HISTORY: Aortic valve replacement, liver resection due to cancer. FAMILY HISTORY: The patient's mother had metastatic cancer and at age 76. His aunt had cancer. His brother had metastatic cancer. SOCIAL HISTORY: His son lives with the patient in a town house. The patient smoked half a pack a day for 15 years and then quit. The patient admits to "on "1-2 drinks 2-3 times a week." However, according to the patient's son, he drinks considerable amount and considers him an alcoholic. The patient denied any illicit drug use. ALLERGIES: PENICILLIN AND SULFA. HOME MEDICATIONS: Currently listed home medications include: 1. Albuterol sulfate 6.7 g HFA 2 inhalations every 4 hours. 2. Levaquin 500 mg tablets p.o. daily. 3. Methylprednisolone 4 mg Dosepak. 4. Guaifenesin/codeine phosphate q.4 hours p.r.n. for cough. 5. Lispro insulin 8 units subcu t.i.d. 6. Levemir insulin 20 units every morning and 40 units every day at 5 p.m. 7. Diazepam 5 mg p.o. daily p.r.n. for agitation. 8. Digoxin 125 mcg tablet every other day. 9. Levothyroxine 125 mcg tablet daily. 10. Losartan potassium 50 mg p.o. b.i.d. 11. Lopressor 50 mg p.o. b.i.d. 12. Montelukast sodium 10 mg daily. 13. Nifedipine 30 mg. 14. Nifedical XL tablet 60 mg p.o. daily. 15. Omeprazole 20 mg daily. 16. Temazepam 30 mg p.o. at bedtime. 17. Spiriva 18 mcg cap inhalation daily. 18. Warfarin sodium 4 mg tablet daily. The patient has underlying dementia and the patient's son does not know for sure what he takes. I have asked the nurse Юлия to call the patient's pharmacy to try to determine if this list of medications is accurate. The patient states he does not take digoxin. Also of note, his blood sugar is only mildly elevated and his hemoglobin A1c is 5.9%. Thus, he is not diabetic from what I can tell. His long-acting insulin has been stopped. REVIEW OF SYSTEMS: CONSTITUTIONAL: The patient states he has had unintentional weight loss of 30 pounds in 6 months. As per the medication list, he has been on digoxin. He denies any new difficulties in eyesight. PSYCHIATRIC: The patient was depressed when he lost his 4 years ago, but denies depression now. GASTROINTESTINAL: Last bowel movement this morning. MUSCULOSKELETAL: Generalized weakness. NEUROLOGIC: Dizzy at times. A 14-point review of systems was completed and except for the aforementioned, he denies any complaints. PHYSICAL EXAMINATION: VITAL SIGNS: Temperature 98.0, heart rate 98, later heart rate 114, blood pressure 142/75, respirations 18, and oxygen saturation 94% on room air. Height 6 feet 1 inch, weight 198 pounds. BMI 26.12. Per telemetry, the patient with sinus tachycardia with a heart rate in the one teens with occasional PACs and occasional PVCs. GENERAL: Supine, no acute distress. LUNGS: Clear to auscultation. Respiratory pattern even and unlabored. No supplemental oxygen. HEENT: EOMI. NECK: Supple. No JVD. CARDIOVASCULAR: Irregularly irregular. No murmur appreciated. ABDOMEN: Bowel sounds positive. Soft, nontender. EXTREMITIES: No pitting edema. No clubbing, cyanosis, or signs of DVT. NEUROLOGICAL: GCS 15. Nonfocal. DIAGNOSTIC STUDIES/LABORATORY DATA: On admission, WBCs 13.69, which has improved to 9.18 today, hemoglobin 11.3, hematocrit 37.7, which is now 10.8 and 35, platelet count 490 initially, now 394. Sodium level on admission 135, glucose 167, calcium 9.8, AST 38, ALT 41, alkaline phosphatase 97. Troponin I 0.031. Blood glucose levels today 148, 150, 140. Today, sodium 138, potassium 4.5, chloride 100, CO2 of 28, anion gap 14.5, BUN 17, creatinine 0.93, estimated GFR greater than 60, glucose 122. Hemoglobin A1c 5.9%. Calcium 10.2, phosphorus 3.3, magnesium 1.9, total bilirubin 0.6, AST 40, ALT 42, alkaline phosphatase 92, total protein 7.1, albumin 2.6. Triglycerides 86, cholesterol 139, LDL 91, HDL 31, TSH 0.511. Urinalysis was negative. Coronavirus PCR collected 06/19 remains pending. IMAGIN. Chest x-ray, 06/[address] of the chest, abdomen and pelvis, official report impression is as follows: Stable 11 mm ground-glass opacity noted within the right upper lobe unchanged from prior examinations dating back to 2016, suggesting a benign etiology. No new/suspicious pulmonary nodule identified. Calcific aortic atherosclerosis, coronary artery disease, and calcification of the aortic and mitral valves. Prominence of the main pulmonary artery, which can be seen in the setting of pulmonary hypertension. 2. Stable postsurgical changes from prior left hepatectomy, punctate bilateral nonobstructing nephrolithiasis. Wall thickening noted of the gastric antrum similar to the prior examination and may reflect sequelae of prior inflammation/gastritis, diverticulosis coli without evidence for acute diverticulitis, mild T6 compression deformity, which was not present on the prior exam from 08/26/2017. Stable/chronic appearing left-sided rib fractures in L1 compression deformity again noted. ASSESSMENT/PLAN: 1. Generalized weakness with ambulatory dysfunction, history of falls, history of collapse. Physical therapy saw and evaluated the patient. I spoke with Angel with PT, who stated that the patient ambulated 200 feet with rolling walker with minimal assistance. Basically generalized weakness was his admitting diagnosis, put in orders for Case Management as follows. Please arrange home health with long-term, including PT/INR blood draws 2 times per week with results called to Dr. Sanon's office, home safety evaluation and education for family and patient regarding home medications and PT/OT to evaluate and treat. 2. Inadequate oral intake, unintentional weight loss of 30 pounds in 6 months, history of liver cancer, strong family history of metastatic cancer and former smoker, elevated calcium level of 10.2. The patient may have recurrent or new cancer. Planning on discharging the patient today home with home health on a cardiac diet. Activity level as tolerated with rolling walker. Avoid falls. Discard any floor rugs in his residence due to potential for falling. The patient is to follow up with his PCP, Dr. Sudhir Reardon in 1-2 weeks. Follow up with Dr. Sanon in 1-2 weeks for Coumadin dosing and Cardiac care. Also instructions to encourage Dr. Reardon to refer to an oncologist of choice due to possible recurrent or new cancer as evidenced by the aforementioned diagnoses. 3. Sinus tachycardia with occasional PACs and occasional PVCs. Definite P waves. The patient is not in atrial fibrillation. Current list of home medications reviewed and digoxin and Lopressor resumed. Awaiting home medication list from nurse via patient's pharmacy. Today heart rate is fluctuated from 90-114. 4. Dementia. Re-orientation is possible. Follow up with PCP. 5. History of aortic valve replacement. Stat PT, INR has been sent to the lab. Awaiting results. If result is too elevated, we will defer discharge. Consult Dr. Sanon, the patient's outpatient client development director, and ensure INR safe before discharging him. Otherwise, we will send him home today with the aforementioned plans. 6. Prophylaxis, ambulatory, Protonix. Billing code 60649. Time spent 70 minutes. Dictated by Sawyer Ames NP MD TORIE WilsonP/JESICAL /[id number]
--- NOTE | 2020-06-21 08:49 | NUR ---
H&P AND THERAPY NOTES FAXED TO [facility] REQUESTED, FAX CONFIRMATION RECEIVED.
[2020-06-21] MEDS ORDERED: TIOTROPIUM 18 MCG INH POWDER INH SCH (09:00)
[2020-06-21] MEDS ORDERED: MONTELUKAST SODIUM 10 MG TAB PO SCH (09:00)
[2020-06-21] MEDS ORDERED: NIFEDIPINE CR 30 MG TAB PO SCH (09:00)
== END 2020-06-20 20:43 | disposition home health service (06) ==
LOC: ER 10:37 → ERHOLD 15:04 → MED/SURG2 15:30
PROVIDERS: ADMIT Internal Medicine; ATTEND Internal Medicine
DX: R53.1 Weakness (principal); Z85.05 Personal history of malignant neoplasm of liver; J44.9 Chronic obstructive pulmonary disease, unspecified; Z87.891 Personal history of nicotine dependence; K21.9 Gastro-esophageal reflux disease without esophagitis; E78.5 Hyperlipidemia, unspecified; F03.90 Unspecified dementia, unspecified severity, without behavioral disturbance, psychotic disturbance, mood disturbance, and anxiety; Z95.2 Presence of prosthetic heart valve; Z88.0 Allergy status to penicillin; Z88.2 Allergy status to sulfonamides; Z79.4 Long term (current) use of insulin; Z91.81 History of falling; I49.1 Atrial premature depolarization; I49.3 Ventricular premature depolarization; R63.4 Abnormal weight loss; Z68.26 Body mass index [BMI] 26.0-26.9, adult; Z11.59 Encounter for screening for other viral diseases
CPT/HCPCS: 36415 ×2; 71045; 71260; 74177; 80053 ×2; 80061; 81001; 82550; 82553; 82948 ×2; 83036; 83735; 84100; 84443; 84484; 85025 ×2; 85610; 93005; 97116; 97139 ×2; 97161; 97530; 99284; G0378 ×2; J1815; Q9967; S0164; U0002

== ENCOUNTER 2020-08-01 23:06 | Inpatient (IN) | payer MEDICARE, OTHER ==
[~2020-08-01] VITALS: Ht 185.4 cm; Wt 81.6 kg
[2020-08-01] MEDS ORDERED: SODIUM CHLORIDE 0.9% 1000ML 1,000 ML IV ONE ×2 (23:15)
[2020-08-01] MEDS ORDERED: AZITHROMYCIN 500MG/NS 250 ML 250 ML IV ONE (23:15)
[2020-08-01] MEDS ORDERED: SODIUM CHLORIDE 0.9% 500ML 500 ML IV ONE (23:15)
[2020-08-01] MEDS ORDERED: CEFTRIAXONE SOD 1 GM/NS 50 ML 50 ML IV ONE (23:15)
[2020-08-01] MEDS ORDERED: SODIUM CHLORIDE 0.9% 1000ML 2,000 ML ONE (23:18)
[2020-08-01 23:26] LABS: BASOPHILS # (AUTO) 0.1 (0.0-0.1); BASOPHILS % 0.8 % (0.0-1.0); EOSINOPHILS # (AUTO) 0.4 (0.0-0.4); EOSINOPHILS % 3.1 % (0.0-6.0); HEMOGLOBIN 10.3 g/dL (14.0-18.0); LYMPHOCYTES # (AUTO) 1.5 (1.0-3.2); LYMPHOCYTES % 12.4 % (18.0-39.1); MEAN CORPUSCULAR HGB CONC 29.4 g/dL (31-35); MONOCYTES # (AUTO) 0.9 (0.2-0.8); MONOCYTES % 7.4 % (4.4-11.3); NEUTROPHILS # (AUTO) 9.2 (2.1-6.9); PLATELET COUNT 521 x10e3/uL (140-360); RED BLOOD COUNT 4.12 x10e6/uL (4.3-5.7)
[2020-08-01 23:36] LABS: INR 2.72; PROTHROMBIN TIME 30.1 seconds (11.9-14.5)
[2020-08-01 23:37] LABS: PARTIAL THROMBOPLASTIN TIME 52.5 seconds (23.8-35.5)
[2020-08-01 23:43] LABS: BILIRUBIN,URINE NEGATIVE (NEGATIVE); CLARITY,URINE CLEAR (CLEAR); COLOR,URINE YELLOW (YELLOW); KETONES,URINE NEGATIVE (NEGATIVE); LEUKOCYTE ESTERASE ,URINE NEGATIVE (NEGATIVE); NITRITE,URINE NEGATIVE (NEGATIVE); PROTEIN,URINE DIPSTICK NEGATIVE (NEGATIVE)
[2020-08-01 23:45] LABS: ALBUMIN 3.4 g/dL (3.5-5.0); ALBUMIN/GLOBULIN RATIO 0.9 (0.8-2.0); ANION GAP 19.6 mmol/L (8-16); CALCIUM 9.9 mg/dL (8.4-10.2); CREATININE, SERUM 1.56 mg/dL (0.72-1.25); POTASSIUM 4.6 mmol/L (3.5-5.1)
[2020-08-01 23:46] LABS: BACTERIA,URINE FEW /HPF; EPITHELIAL CELLS,URINE FEW /LPF; RBC,URINE 0-5 /HPF (0-5); WBC,URINE (MAN) 0-5 /HPF (0-5)
[2020-08-01 23:49] LABS: B-TYPE NATRIURETIC PEPTIDE2 386.4 pg/mL (0-100)
[2020-08-01 23:52] LABS: CREATINE KINASE MB 0.8 ng/mL (0-5.0)
[2020-08-02] MEDS: ALBUTEROL SULF 0.083% NEB SOLN 3 ML NEB NEB SCH ×5 (00:24→21:10)
[2020-08-02] MEDS ORDERED: SODIUM CHLORIDE 0.9% 500ML 500 ML ONE (02:19)
[2020-08-02] MEDS: SODIUM CHLORIDE 0.9% 1000ML 1,000 ML IV SCH ×3 (03:24→22:15)
[2020-08-02] MEDS ORDERED: ONDANSETRON HCL INJ 2MG/ML 2ML 2 MG/ML VIAL IV PRN (03:30)
[2020-08-02 08:09] LABS: CREATINE KINASE MB 1.4 ng/mL (0-5.0)
[2020-08-02 09:00] VITALS: BP 131/59
[2020-08-02 10:15] VITALS: BP 131/59
[2020-08-02 13:10] VITALS: BP 135/92
[2020-08-02 17:10] LABS: CREATINE KINASE 66 IU/L (30-200)
[2020-08-02] MEDS: IPRATROPIUM BROMIDE 0.02% 2.5 ML NEB NEB SCH ×2 (17:13→19:25)
[2020-08-02 18:18] VITALS: BP 87/55
[2020-08-02 20:00] VITALS: BP 138/59
[2020-08-02] MEDS ORDERED: DEXTROSE 50% SYRINGE 50 ML IV PRN (20:15)
[2020-08-02] MEDS: INSULIN LISPRO 100 UNIT/1 ML 3ML VIAL SQ SCH (21:00)
[2020-08-02 22:44] VITALS: BP 138/59
[2020-08-02] MEDS: AZITHROMYCIN 500MG/SOD CHL 0.9% 250ML BAG IV SCH (23:00)
[2020-08-03] VITALS (8 sets, daily range): BP systolic 123–144; BP diastolic 45–68
[2020-08-03] MEDS: CEFTRIAXONE SOD 1 GRAM/0.9% SOD CHL 50ML BAG IV SCH
[2020-08-03] MEDS: ALBUTEROL SULF 0.083% NEB SOLN 3 ML NEB NEB SCH ×5 (04:50→19:20)
[2020-08-03] MEDS: IPRATROPIUM BROMIDE 0.02% 2.5 ML NEB NEB SCH ×4 (04:50→21:41)
[2020-08-03 07:21] LABS: BASOPHILS # (AUTO) 0.1 (0.0-0.1); BASOPHILS % 0.9 % (0.0-1.0); EOSINOPHILS # (AUTO) 0.1 (0.0-0.4); EOSINOPHILS % 1.6 % (0.0-6.0); HEMOGLOBIN 8.7 g/dL (14.0-18.0); LYMPHOCYTES # (AUTO) 1.2 (1.0-3.2); MEAN CORPUSCULAR HEMOGLOBIN 25.6 pg (28-32); MEAN CORPUSCULAR VOLUME 85.3 fL (81-99); MONOCYTES # (AUTO) 0.8 (0.2-0.8); MONOCYTES % 9.4 % (4.4-11.3); NEUTROPHILS # (AUTO) 6.7 (2.1-6.9); NEUTROPHILS % 74.4 % (38.7-80.0); PLATELET COUNT 372 x10e3/uL (140-360); RED CELL DISTRIBUTION WIDTH 15.9 % (11.7-14.4)
[2020-08-03 07:28] LABS: INR 3.15; PROTHROMBIN TIME 33.8 seconds (11.9-14.5)
[2020-08-03 07:30] LABS: ALANINE AMINOTRANSFERASE 31 IU/L (0-55); ALBUMIN 2.8 g/dL (3.5-5.0); ALBUMIN/GLOBULIN RATIO 0.9 (0.8-2.0); ALKALINE PHOSPHATASE 89 IU/L (40-150); ANION GAP 15.1 mmol/L (8-16); BLOOD UREA NITROGEN 17 mg/dL (7-26); BUN/CREATININE RATIO 20 (6-25); CALCIUM 8.7 mg/dL (8.4-10.2); CARBON DIOXIDE 21 mmol/L (22-29); CHLORIDE 106 mmol/L (98-107); CREATININE, SERUM 0.83 mg/dL (0.72-1.25); EST GLOMERULAR FILTRATION RATE > 60 ML/MIN (60-); GLUCOSE 222 mg/dL (74-118); POTASSIUM 3.1 mmol/L (3.5-5.1); SODIUM 139 mmol/L (136-145)
[2020-08-03] MEDS: INSULIN LISPRO 100 UNIT/1 ML 3ML VIAL SQ SCH ×4 (08:37→21:00)
[2020-08-03] MEDS: TIOTROPIUM 18 MCG INH POWDER INH SCH (12:40)
[2020-08-03] MEDS: SODIUM CHLORIDE 0.9% 1000ML 1,000 ML IV SCH ×2 (15:32→16:39)
[2020-08-03] MEDS: WARFARIN SOD 2 MG TAB PO SCH ×2 (16:38→17:00)
[2020-08-03] MEDS: MONTELUKAST SODIUM 10 MG TAB PO SCH (16:38)
[2020-08-03] MEDS ORDERED: POTASSIUM CHLORIDE 20 MEQ TAB CR PO STA (17:36)
[2020-08-03] MEDS: AZITHROMYCIN 500MG/SOD CHL 0.9% 250ML BAG IV SCH (23:18)
[2020-08-04] VITALS (8 sets, daily range): BP systolic 130–148; BP diastolic 63–78
[2020-08-04] MEDS: CEFTRIAXONE SOD 1 GRAM/0.9% SOD CHL 50ML BAG IV SCH
[2020-08-04] MEDS: IPRATROPIUM BROMIDE 0.02% 2.5 ML NEB NEB SCH ×5 (00:32→23:35)
[2020-08-04] MEDS: ALBUTEROL SULF 0.083% NEB SOLN 3 ML NEB NEB SCH ×5 (04:00→23:35)
[2020-08-04] MEDS: LEVOTHYROXINE SODIUM 125 MCG TAB PO SCH (06:00)
[2020-08-04 06:14] LABS: BASOPHILS # (AUTO) 0.1 (0.0-0.1); BASOPHILS % 0.8 % (0.0-1.0); EOSINOPHILS # (AUTO) 0.3 (0.0-0.4); EOSINOPHILS % 2.8 % (0.0-6.0); HEMOGLOBIN 9.5 g/dL (14.0-18.0); LYMPHOCYTES # (AUTO) 1.6 (1.0-3.2); LYMPHOCYTES % 15.6 % (18.0-39.1); MEAN CORPUSCULAR HEMOGLOBIN 26.2 pg (28-32); MEAN CORPUSCULAR HGB CONC 30.6 g/dL (31-35); MEAN CORPUSCULAR VOLUME 85.6 fL (81-99); MONOCYTES # (AUTO) 1.2 (0.2-0.8); MONOCYTES % 12.3 % (4.4-11.3); NEUTROPHILS # (AUTO) 6.8 (2.1-6.9); NEUTROPHILS % 67.8 % (38.7-80.0); PLATELET COUNT 345 x10e3/uL (140-360); RED BLOOD COUNT 3.62 x10e6/uL (4.3-5.7); RED CELL DISTRIBUTION WIDTH 16.3 % (11.7-14.4)
[2020-08-04 06:25] LABS: INR 2.82
[2020-08-04 06:34] LABS: ALANINE AMINOTRANSFERASE 32 IU/L (0-55); ALBUMIN/GLOBULIN RATIO 0.9 (0.8-2.0); ALKALINE PHOSPHATASE 94 IU/L (40-150); ANION GAP 13.7 mmol/L (8-16); BLOOD UREA NITROGEN 10 mg/dL (7-26); BUN/CREATININE RATIO 14 (6-25); CALCIUM 8.9 mg/dL (8.4-10.2); CARBON DIOXIDE 27 mmol/L (22-29); CHLORIDE 104 mmol/L (98-107); CREATININE, SERUM 0.69 mg/dL (0.72-1.25); EST GLOMERULAR FILTRATION RATE > 60 ML/MIN (60-); GLUCOSE 141 mg/dL (74-118); POTASSIUM 3.7 mmol/L (3.5-5.1); SODIUM 141 mmol/L (136-145)
[2020-08-04] MEDS: TIOTROPIUM 18 MCG INH POWDER INH SCH (07:40)
[2020-08-04] MEDS: PANTOPRAZOLE SOD 40 MG TABEC PO SCH (08:30)
[2020-08-04] MEDS: INSULIN LISPRO 100 UNIT/1 ML 3ML VIAL SQ SCH ×4 (08:59→21:35)
[2020-08-04] MEDS: MONTELUKAST SODIUM 10 MG TAB PO SCH (17:58)
[2020-08-04] MEDS: WARFARIN SOD 2 MG TAB PO SCH (17:58)
[2020-08-04] MEDS: TEMAZEPAM 15 MG CAP PO PRN (21:35)
[2020-08-04] MEDS: AZITHROMYCIN 500MG/SOD CHL 0.9% 250ML BAG IV SCH (23:01)
[2020-08-04] MEDS: GUAIFENESIN 600 MG TAB PO PRN (23:01)
[2020-08-05] VITALS (8 sets, daily range): BP systolic 132–153; BP diastolic 64–74
[2020-08-05] MEDS: CEFTRIAXONE SOD 1 GRAM/0.9% SOD CHL 50ML BAG IV SCH (00:33)
[2020-08-05] MEDS: ALBUTEROL SULF 0.083% NEB SOLN 3 ML NEB NEB SCH ×4 (03:45→15:30)
[2020-08-05] MEDS: LEVOTHYROXINE SODIUM 125 MCG TAB PO SCH (05:33)
[2020-08-05 06:03] LABS: BASOPHILS # (AUTO) 0.1 (0.0-0.1); BASOPHILS % 0.8 % (0.0-1.0); EOSINOPHILS # (AUTO) 0.3 (0.0-0.4); EOSINOPHILS % 2.4 % (0.0-6.0); HEMATOCRIT 29.4 % (38.2-49.6); HEMOGLOBIN 8.8 g/dL (14.0-18.0); LYMPHOCYTES # (AUTO) 1.4 (1.0-3.2); LYMPHOCYTES % 13.6 % (18.0-39.1); MEAN CORPUSCULAR HEMOGLOBIN 24.9 pg (28-32); MEAN CORPUSCULAR HGB CONC 29.9 g/dL (31-35); MEAN CORPUSCULAR VOLUME 83.1 fL (81-99); MONOCYTES # (AUTO) 1.3 (0.2-0.8); MONOCYTES % 12.8 % (4.4-11.3); NEUTROPHILS # (AUTO) 7.2 (2.1-6.9); NEUTROPHILS % 69.2 % (38.7-80.0); PLATELET COUNT 368 x10e3/uL (140-360); RED BLOOD COUNT 3.54 x10e6/uL (4.3-5.7); RED CELL DISTRIBUTION WIDTH 16.2 % (11.7-14.4)
[2020-08-05 06:14] LABS: INR 2.4; PROTHROMBIN TIME 27.3 seconds (11.9-14.5)
[2020-08-05 06:19] LABS: ANION GAP 16.3 mmol/L (8-16); BLOOD UREA NITROGEN 7 mg/dL (7-26); BUN/CREATININE RATIO 9 (6-25); CALCIUM 8.7 mg/dL (8.4-10.2); CARBON DIOXIDE 24 mmol/L (22-29); CHLORIDE 102 mmol/L (98-107); CREATININE, SERUM 0.74 mg/dL (0.72-1.25); EST GLOMERULAR FILTRATION RATE > 60 ML/MIN (60-); GLUCOSE 142 mg/dL (74-118); MAGNESIUM 1.4 MG/DL (1.3-2.1); PHOSPHORUS 2.3 MG/DL (2.3-4.7); POTASSIUM 3.3 mmol/L (3.5-5.1); SODIUM 139 mmol/L (136-145)
[2020-08-05 07:16] LABS: PLATELET ESTIMATE SLIGHTLY INCREASED; RBC MORPHOLOGY COMMENT NORMAL
[2020-08-05 07:17] LABS: HYPOCHROMASIA SLIGHT
[2020-08-05 07:18] LABS: PLATELET MORPHOLOGY COMMENT FEW EDTA CLUMPING
[2020-08-05] MEDS: TIOTROPIUM 18 MCG INH POWDER INH SCH (07:45)
[2020-08-05] MEDS: IPRATROPIUM BROMIDE 0.02% 2.5 ML NEB NEB SCH ×2 (07:45→13:50)
[2020-08-05] MEDS: INSULIN LISPRO 100 UNIT/1 ML 3ML VIAL SQ SCH ×4 (08:30→21:00)
[2020-08-05] MEDS: PANTOPRAZOLE SOD 40 MG TABEC PO SCH (08:56)
[2020-08-05] MEDS ORDERED: POTASSIUM CHLORIDE 20 MEQ TAB CR PO ONE (13:41)
[2020-08-05] MEDS: MONTELUKAST SODIUM 10 MG TAB PO SCH (16:25)
[2020-08-05] MEDS: WARFARIN SOD 3 MG TAB PO SCH (16:25)
[2020-08-05] MEDS: METOPROLOL TARTRATE INJ 1 MG/ML VIAL IV PRN (17:00)
[2020-08-05] MEDS ORDERED: WARFARIN SOD 2 MG TAB PO SCH (17:00)
[2020-08-05] MEDS: AZITHROMYCIN 500MG/SOD CHL 0.9% 250ML BAG IV SCH (23:07)
[2020-08-06] VITALS (8 sets, daily range): BP systolic 128–156; BP diastolic 52–83
[2020-08-06] MEDS: CEFTRIAXONE SOD 1 GRAM/0.9% SOD CHL 50ML BAG IV SCH (00:02)
[2020-08-06] MEDS: ALBUTEROL SULF 0.083% NEB SOLN 3 ML NEB NEB SCH ×7 (03:20→19:35)
[2020-08-06] MEDS: LEVOTHYROXINE SODIUM 125 MCG TAB PO SCH (05:02)
[2020-08-06] MEDS: METOPROLOL TARTRATE INJ 1 MG/ML VIAL IV PRN ×2 (05:03→16:08)
[2020-08-06] MEDS: ACETAMINOPHEN 325 MG TAB PO PRN (05:03)
[2020-08-06 06:12] LABS: BASOPHILS # (AUTO) 0.1 (0.0-0.1); BASOPHILS % 0.5 % (0.0-1.0); EOSINOPHILS % 0.3 % (0.0-6.0); HEMATOCRIT 29.6 % (38.2-49.6); LYMPHOCYTES # (AUTO) 1.2 (1.0-3.2); LYMPHOCYTES % 9.2 % (18.0-39.1); MEAN CORPUSCULAR HEMOGLOBIN 25.4 pg (28-32); MEAN CORPUSCULAR HGB CONC 30.4 g/dL (31-35); MEAN CORPUSCULAR VOLUME 83.4 fL (81-99); MONOCYTES # (AUTO) 1.3 (0.2-0.8); MONOCYTES % 10.5 % (4.4-11.3); NEUTROPHILS % 78.4 % (38.7-80.0); PLATELET COUNT 374 x10e3/uL (140-360); RED BLOOD COUNT 3.55 x10e6/uL (4.3-5.7); RED CELL DISTRIBUTION WIDTH 16.3 % (11.7-14.4)
[2020-08-06 06:26] LABS: INR 2.6; PROTHROMBIN TIME 29.1 seconds (11.9-14.5)
[2020-08-06 06:39] LABS: ALANINE AMINOTRANSFERASE 23 IU/L (0-55); ALBUMIN 2.9 g/dL (3.5-5.0); ALBUMIN/GLOBULIN RATIO 0.9 (0.8-2.0); ALKALINE PHOSPHATASE 84 IU/L (40-150); ANION GAP 14.7 mmol/L (8-16); BLOOD UREA NITROGEN 6 mg/dL (7-26); BUN/CREATININE RATIO 8 (6-25); CALCIUM 8.9 mg/dL (8.4-10.2); CARBON DIOXIDE 24 mmol/L (22-29); CHLORIDE 101 mmol/L (98-107); CREATININE, SERUM 0.73 mg/dL (0.72-1.25); EST GLOMERULAR FILTRATION RATE > 60 ML/MIN (60-); GLUCOSE 155 mg/dL (74-118); POTASSIUM 3.7 mmol/L (3.5-5.1); SODIUM 136 mmol/L (136-145)
[2020-08-06] MEDS: IPRATROPIUM BROMIDE 0.02% 2.5 ML NEB NEB SCH ×2 (07:30→13:01)
[2020-08-06] MEDS: TIOTROPIUM 18 MCG INH POWDER INH SCH (07:50)
[2020-08-06] MEDS: PANTOPRAZOLE SOD 40 MG TABEC PO SCH (08:24)
[2020-08-06] MEDS: INSULIN LISPRO 100 UNIT/1 ML 3ML VIAL SQ SCH ×4 (08:30→21:03)
[2020-08-06] MEDS: MONTELUKAST SODIUM 10 MG TAB PO SCH (17:41)
[2020-08-06] MEDS: WARFARIN SOD 3 MG TAB PO SCH (17:41)
[2020-08-06] MEDS: AZITHROMYCIN 500MG/SOD CHL 0.9% 250ML BAG IV SCH (22:33)
[2020-08-07] VITALS (10 sets, daily range): BP systolic 132–197; BP diastolic 57–77
[2020-08-07] MEDS: ALBUTEROL SULF 0.083% NEB SOLN 3 ML NEB NEB SCH ×7 (00:12→23:19)
[2020-08-07] MEDS: CEFTRIAXONE SOD 1 GRAM/0.9% SOD CHL 50ML BAG IV SCH ×2 (00:13→23:18)
[2020-08-07] MEDS: IPRATROPIUM BROMIDE 0.02% 2.5 ML NEB NEB SCH ×4 (03:30→21:37)
[2020-08-07] MEDS: LEVOTHYROXINE SODIUM 125 MCG TAB PO SCH (05:01)
[2020-08-07] MEDS: METOPROLOL TARTRATE INJ 1 MG/ML VIAL IV PRN (05:02)
[2020-08-07] MEDS: ACETAMINOPHEN 325 MG TAB PO PRN (05:02)
[2020-08-07 06:30] LABS: BASOPHILS # (AUTO) 0.1 (0.0-0.1); BASOPHILS % 0.6 % (0.0-1.0); EOSINOPHILS # (AUTO) 0.1 (0.0-0.4); HEMATOCRIT 29.6 % (38.2-49.6); LYMPHOCYTES # (AUTO) 1.4 (1.0-3.2); LYMPHOCYTES % 12.1 % (18.0-39.1); MEAN CORPUSCULAR HEMOGLOBIN 25.3 pg (28-32); MEAN CORPUSCULAR HGB CONC 30.4 g/dL (31-35); MEAN CORPUSCULAR VOLUME 83.1 fL (81-99); MONOCYTES # (AUTO) 1.1 (0.2-0.8); MONOCYTES % 9.3 % (4.4-11.3); NEUTROPHILS # (AUTO) 8.6 (2.1-6.9); NEUTROPHILS % 75.9 % (38.7-80.0); PLATELET COUNT 374 x10e3/uL (140-360); RED BLOOD COUNT 3.56 x10e6/uL (4.3-5.7); RED CELL DISTRIBUTION WIDTH 16.3 % (11.7-14.4)
[2020-08-07 06:53] LABS: ALANINE AMINOTRANSFERASE 24 IU/L (0-55); ALBUMIN 2.8 g/dL (3.5-5.0); ALBUMIN/GLOBULIN RATIO 0.8 (0.8-2.0); ALKALINE PHOSPHATASE 83 IU/L (40-150); ANION GAP 14.6 mmol/L (8-16); BLOOD UREA NITROGEN 9 mg/dL (7-26); BUN/CREATININE RATIO 13 (6-25); CARBON DIOXIDE 25 mmol/L (22-29); CHLORIDE 101 mmol/L (98-107); CREATININE, SERUM 0.71 mg/dL (0.72-1.25); EST GLOMERULAR FILTRATION RATE > 60 ML/MIN (60-); GLUCOSE 128 mg/dL (74-118); POTASSIUM 3.6 mmol/L (3.5-5.1); SODIUM 137 mmol/L (136-145)
[2020-08-07] MEDS: PANTOPRAZOLE SOD 40 MG TABEC PO SCH (07:45)
[2020-08-07] MEDS: TIOTROPIUM 18 MCG INH POWDER INH SCH (08:00)
[2020-08-07] MEDS: INSULIN LISPRO 100 UNIT/1 ML 3ML VIAL SQ SCH ×4 (08:30→21:57)
[2020-08-07 10:25] LABS: INR 3.11; PROTHROMBIN TIME 33.5 seconds (11.9-14.5)
[2020-08-07] MEDS: WARFARIN SOD 3 MG TAB PO SCH (16:16)
[2020-08-07] MEDS: MONTELUKAST SODIUM 10 MG TAB PO SCH (16:16)
[2020-08-07] MEDS: AZITHROMYCIN 500MG/SOD CHL 0.9% 250ML BAG IV SCH (21:57)
[2020-08-08] VITALS (8 sets, daily range): BP systolic 141–176; BP diastolic 71–93
[2020-08-08] MEDS: ALBUTEROL SULF 0.083% NEB SOLN 3 ML NEB NEB SCH ×6 (00:59→19:30)
[2020-08-08] MEDS: IPRATROPIUM BROMIDE 0.02% 2.5 ML NEB NEB SCH ×4 (02:55→19:30)
[2020-08-08] MEDS: LEVOTHYROXINE SODIUM 125 MCG TAB PO SCH (05:38)
[2020-08-08 05:39] LABS: BASOPHILS # (AUTO) 0.1 (0.0-0.1); BASOPHILS % 0.9 % (0.0-1.0); EOSINOPHILS # (AUTO) 0.2 (0.0-0.4); EOSINOPHILS % 2.3 % (0.0-6.0); HEMATOCRIT 30.6 % (38.2-49.6); HEMOGLOBIN 9.1 g/dL (14.0-18.0); LYMPHOCYTES # (AUTO) 1.6 (1.0-3.2); LYMPHOCYTES % 17.3 % (18.0-39.1); MEAN CORPUSCULAR HEMOGLOBIN 24.5 pg (28-32); MEAN CORPUSCULAR HGB CONC 29.7 g/dL (31-35); MEAN CORPUSCULAR VOLUME 82.5 fL (81-99); MONOCYTES # (AUTO) 0.8 (0.2-0.8); MONOCYTES % 8.8 % (4.4-11.3); NEUTROPHILS # (AUTO) 6.6 (2.1-6.9); NEUTROPHILS % 69.8 % (38.7-80.0); PLATELET COUNT 392 x10e3/uL (140-360); RED BLOOD COUNT 3.71 x10e6/uL (4.3-5.7); RED CELL DISTRIBUTION WIDTH 16.5 % (11.7-14.4)
[2020-08-08 06:04] LABS: ALANINE AMINOTRANSFERASE 34 IU/L (0-55); ALBUMIN 2.9 g/dL (3.5-5.0); ALBUMIN/GLOBULIN RATIO 0.9 (0.8-2.0); ALKALINE PHOSPHATASE 86 IU/L (40-150); ANION GAP 16.5 mmol/L (8-16); BLOOD UREA NITROGEN 10 mg/dL (7-26); BUN/CREATININE RATIO 14 (6-25); CALCIUM 9.1 mg/dL (8.4-10.2); CARBON DIOXIDE 25 mmol/L (22-29); CHLORIDE 100 mmol/L (98-107); CREATININE, SERUM 0.74 mg/dL (0.72-1.25); EST GLOMERULAR FILTRATION RATE > 60 ML/MIN (60-); GLUCOSE 138 mg/dL (74-118); POTASSIUM 3.5 mmol/L (3.5-5.1); SODIUM 138 mmol/L (136-145)
[2020-08-08] MEDS: INSULIN LISPRO 100 UNIT/1 ML 3ML VIAL SQ SCH ×4 (08:30→20:36)
[2020-08-08] MEDS: PANTOPRAZOLE SOD 40 MG TABEC PO SCH (08:32)
[2020-08-08] MEDS: GUAIFENESIN 600 MG TAB PO PRN (09:00)
[2020-08-08] MEDS ORDERED: ALBUTEROL/IPRATROPIUM 3 ML NEB ONE ×2 (09:04→09:19)
[2020-08-08 09:42] LABS: INR 1.21; PROTHROMBIN TIME 15.9 seconds (11.9-14.5)
[2020-08-08] MEDS: TIOTROPIUM 18 MCG INH POWDER INH SCH (11:15)
[2020-08-08] MEDS: METOPROLOL TARTRATE INJ 1 MG/ML VIAL IV PRN (16:00)
[2020-08-08] MEDS: WARFARIN SOD 3 MG TAB PO SCH (18:49)
[2020-08-08] MEDS: MONTELUKAST SODIUM 10 MG TAB PO SCH (18:49)
[2020-08-08] MEDS: TEMAZEPAM 15 MG CAP PO PRN ×2 (20:45→21:54)
[2020-08-08] MEDS: CEFTRIAXONE SOD 1 GRAM/0.9% SOD CHL 50ML BAG IV SCH (23:32)
[2020-08-09] VITALS (9 sets, daily range): BP systolic 114–149; BP diastolic 61–90
[2020-08-09] MEDS: ALBUTEROL SULF 0.083% NEB SOLN 3 ML NEB NEB SCH ×6 (00:59→22:04)
[2020-08-09] MEDS: LEVOTHYROXINE SODIUM 125 MCG TAB PO SCH (06:07)
[2020-08-09 07:09] LABS: BASOPHILS # (AUTO) 0.1 (0.0-0.1); BASOPHILS % 0.9 % (0.0-1.0); EOSINOPHILS # (AUTO) 0.2 (0.0-0.4); EOSINOPHILS % 2.7 % (0.0-6.0); HEMATOCRIT 28.1 % (38.2-49.6); HEMOGLOBIN 8.5 g/dL (14.0-18.0); LYMPHOCYTES # (AUTO) 1.7 (1.0-3.2); LYMPHOCYTES % 19.9 % (18.0-39.1); MEAN CORPUSCULAR HEMOGLOBIN 25.8 pg (28-32); MEAN CORPUSCULAR HGB CONC 30.2 g/dL (31-35); MEAN CORPUSCULAR VOLUME 85.2 fL (81-99); MONOCYTES # (AUTO) 0.8 (0.2-0.8); MONOCYTES % 8.8 % (4.4-11.3); NEUTROPHILS # (AUTO) 5.9 (2.1-6.9); PLATELET COUNT 346 x10e3/uL (140-360); RED CELL DISTRIBUTION WIDTH 16.3 % (11.7-14.4)
[2020-08-09] MEDS: INSULIN LISPRO 100 UNIT/1 ML 3ML VIAL SQ SCH ×4 (07:30→21:00)
[2020-08-09 07:40] LABS: ANION GAP 14.3 mmol/L (8-16); BLOOD UREA NITROGEN 9 mg/dL (7-26); BUN/CREATININE RATIO 13 (6-25); CALCIUM 9.1 mg/dL (8.4-10.2); CARBON DIOXIDE 26 mmol/L (22-29); CHLORIDE 101 mmol/L (98-107); CREATININE, SERUM 0.69 mg/dL (0.72-1.25); EST GLOMERULAR FILTRATION RATE > 60 ML/MIN (60-); GLUCOSE 114 mg/dL (74-118); MAGNESIUM 1.6 MG/DL (1.3-2.1); PHOSPHORUS 3.2 MG/DL (2.3-4.7); POTASSIUM 3.3 mmol/L (3.5-5.1); SODIUM 138 mmol/L (136-145)
[2020-08-09] MEDS: PANTOPRAZOLE SOD 40 MG TABEC PO SCH (08:19)
[2020-08-09 09:34] LABS: INR 2.9; PROTHROMBIN TIME 31.7 seconds (11.9-14.5)
[2020-08-09] MEDS: IPRATROPIUM BROMIDE 0.02% 2.5 ML NEB NEB SCH ×2 (10:05→15:40)
[2020-08-09] MEDS: TIOTROPIUM 18 MCG INH POWDER INH SCH (10:20)
[2020-08-09] MEDS: GUAIFENESIN 600 MG TAB PO PRN (14:44)
[2020-08-09] MEDS: WARFARIN SOD 3 MG TAB PO SCH (17:37)
[2020-08-09] MEDS: MONTELUKAST SODIUM 10 MG TAB PO SCH (17:37)
[2020-08-09] MEDS ORDERED: POTASSIUM CHLORIDE 20 MEQ TAB CR PO ONE (23:00)
[2020-08-09] MEDS ORDERED: MAGNESIUM SULFATE 2GM/50ML 50 ML IV ONE (23:00)
[2020-08-10] VITALS (7 sets, daily range): BP systolic 107–145; BP diastolic 51–67
[2020-08-10] MEDS: GUAIFENESIN 600 MG TAB PO PRN ×2 (03:33→17:43)
[2020-08-10] MEDS: LEVOTHYROXINE SODIUM 125 MCG TAB PO SCH (05:12)
[2020-08-10] MEDS: TIOTROPIUM 18 MCG INH POWDER INH SCH (06:00)
[2020-08-10] MEDS: IPRATROPIUM BROMIDE 0.02% 2.5 ML NEB NEB SCH ×3 (06:09→07:35)
[2020-08-10] MEDS: ALBUTEROL SULF 0.083% NEB SOLN 3 ML NEB NEB SCH ×5 (06:10→23:00)
[2020-08-10 06:18] LABS: BASOPHILS # (AUTO) 0.1 (0.0-0.1); EOSINOPHILS # (AUTO) 0.3 (0.0-0.4); EOSINOPHILS % 2.6 % (0.0-6.0); HEMATOCRIT 26.8 % (38.2-49.6); HEMOGLOBIN 8.1 g/dL (14.0-18.0); LYMPHOCYTES # (AUTO) 1.3 (1.0-3.2); LYMPHOCYTES % 13.8 % (18.0-39.1); MEAN CORPUSCULAR HEMOGLOBIN 25.6 pg (28-32); MEAN CORPUSCULAR HGB CONC 30.2 g/dL (31-35); MEAN CORPUSCULAR VOLUME 84.8 fL (81-99); MONOCYTES # (AUTO) 0.9 (0.2-0.8); MONOCYTES % 9.1 % (4.4-11.3); NEUTROPHILS # (AUTO) 6.9 (2.1-6.9); NEUTROPHILS % 72.8 % (38.7-80.0); PLATELET COUNT 328 x10e3/uL (140-360); RED BLOOD COUNT 3.16 x10e6/uL (4.3-5.7); RED CELL DISTRIBUTION WIDTH 16.3 % (11.7-14.4)
[2020-08-10 06:28] LABS: INR 3.15; PROTHROMBIN TIME 33.8 seconds (11.9-14.5)
[2020-08-10 06:36] LABS: ANION GAP 11.5 mmol/L (8-16); BLOOD UREA NITROGEN 7 mg/dL (7-26); BUN/CREATININE RATIO 10 (6-25); CARBON DIOXIDE 27 mmol/L (22-29); CHLORIDE 101 mmol/L (98-107); CREATININE, SERUM 0.68 mg/dL (0.72-1.25); EST GLOMERULAR FILTRATION RATE > 60 ML/MIN (60-); GLUCOSE 158 mg/dL (74-118); MAGNESIUM 1.9 MG/DL (1.3-2.1); PHOSPHORUS 2.6 MG/DL (2.3-4.7); POTASSIUM 3.5 mmol/L (3.5-5.1); SODIUM 136 mmol/L (136-145)
[2020-08-10] MEDS: PANTOPRAZOLE SOD 40 MG TABEC PO SCH (08:36)
[2020-08-10] MEDS: INSULIN LISPRO 100 UNIT/1 ML 3ML VIAL SQ SCH ×4 (08:37→21:00)
[2020-08-10] MEDS: WARFARIN SOD 3 MG TAB PO SCH (16:41)
[2020-08-10] MEDS: MONTELUKAST SODIUM 10 MG TAB PO SCH (17:43)
[2020-08-10] MEDS ORDERED: POTASSIUM CHLORIDE 20 MEQ TAB CR PO STA (22:06)
[2020-08-11 00:19] VITALS: BP 137/66
[2020-08-11] MEDS: ALBUTEROL SULF 0.083% NEB SOLN 3 ML NEB NEB SCH ×4 (02:35→15:55)
[2020-08-11] MEDS: IPRATROPIUM BROMIDE 0.02% 2.5 ML NEB NEB SCH ×3 (02:35→13:15)
[2020-08-11 05:42] VITALS: BP 126/82
[2020-08-11] MEDS: LEVOTHYROXINE SODIUM 125 MCG TAB PO SCH (05:56)
[2020-08-11 07:27] LABS: INR 2.86; PROTHROMBIN TIME 31.3 seconds (11.9-14.5)
[2020-08-11] MEDS: INSULIN LISPRO 100 UNIT/1 ML 3ML VIAL SQ SCH ×3 (07:30→16:30)
[2020-08-11] MEDS: PANTOPRAZOLE SOD 40 MG TABEC PO SCH (07:44)
[2020-08-11] MEDS: TIOTROPIUM 18 MCG INH POWDER INH SCH (08:10)
[2020-08-11 09:06] VITALS: BP 132/70
[2020-08-11 09:07] VITALS: BP 132/70
[2020-08-11 12:48] VITALS: BP 145/84
[2020-08-11] MEDS ORDERED: Warfarin Sod PO (15:18)
[2020-08-11] MEDS ORDERED: MUCINEX600 MG PO (15:18)
[2020-08-11] MEDS: WARFARIN SOD 3 MG TAB PO SCH (16:37)
[2020-08-11] MEDS: MONTELUKAST SODIUM 10 MG TAB PO SCH (16:38)
[2020-08-11 16:51] VITALS: BP 148/68
[2020-08-11] MEDS ORDERED: METOPROLOL TARTRATE 50 MG TAB PO SCH (17:00)
== END 2020-08-11 16:51 | DRG 193 ==
LOC: ER 23:13 → ERHOLD 08-02 04:19 → MED/SURG3 08-02 08:50
PROVIDERS: ADMIT Internal Medicine; ATTEND Internal Medicine
DX: J18.0 Bronchopneumonia, unspecified organism (principal); G93.41 Metabolic encephalopathy; I48.20 Chronic atrial fibrillation, unspecified; E11.65 Type 2 diabetes mellitus with hyperglycemia; E03.9 Hypothyroidism, unspecified; Z85.05 Personal history of malignant neoplasm of liver; F03.90 Unspecified dementia, unspecified severity, without behavioral disturbance, psychotic disturbance, mood disturbance, and anxiety; Z95.2 Presence of prosthetic heart valve; Z88.0 Allergy status to penicillin; Z88.2 Allergy status to sulfonamides; K21.9 Gastro-esophageal reflux disease without esophagitis; G47.00 Insomnia, unspecified; I10 Essential (primary) hypertension; Z79.01 Long term (current) use of anticoagulants; Z87.891 Personal history of nicotine dependence; Z80.9 Family history of malignant neoplasm, unspecified; Z99.81 Dependence on supplemental oxygen; D63.8 Anemia in other chronic diseases classified elsewhere; J45.909 Unspecified asthma, uncomplicated; W19.XXXA Unspecified fall, initial encounter; Y92.230 Patient room in hospital as the place of occurrence of the external cause; S09.90XA Unspecified injury of head, initial encounter; M25.522 Pain in left elbow; E83.42 Hypomagnesemia; E87.6 Hypokalemia; R26.9 Unspecified abnormalities of gait and mobility; Z11.59 Encounter for screening for other viral diseases
CPT/HCPCS: 36415; 70450; 71045; 71250; 72125; 74230; 80048; 80053; 81001; 82550; 82553; 82948; 83036; 83605; 83735; 83880; 84100; 84443; 84484; 85025; 85610; 85730; 87040; 87086; 93005; 94640; 96372; 97139; 99251; 99284; J0456; J0696; J3475; J7030; J7040; U0002